=== PATIENT | female | born 2000 | race Caucasian/White ===

== ENCOUNTER 2020-07-28 05:54 | Emergency (ER) | payer SELFPAY ==
[2020-07-28 05:57] VITALS: BP 108/69; PULSE 120; RESP 18; TEMP 36.7; O2SAT 100; BMI 18.3
[2020-07-28] MEDS: azithromycin 250 mg Tablet 1000 MG PO (07:03)
--- NOTE | 2020-07-28 07:03 | ED_ITS ---
HPI - Female Genitourinary General: Chief complaint: Urogenital-Female Stated complaint: skin condition Time Seen by Provider: 07/28/20 06:25 History of Present Illness: HPI Narrative: 20-year-old female presents emergency room complaining of dysuria and dyspareunia. Began overnight. She has her boyfriend with her he states he has an active herpes infection she is concerned she may have herpes. She denies any flank pain no fever sweats or chills. She is extremely anxious. MD elicited complaint: dysuria and possible STD Onset (ago): hour(s) Location of symptoms: external genitalia and vaginal Severity: moderate Quality of pain: burning Vaginal discharge: yellow Vaginal bleeding: none Urinary symptoms: Dysuria Exacerbating factors: urination, intercourse and palpation Associated symptoms: Reports nausea and vaginal discharge; Deny abdominal pain, short of breath, fevers/chills, headache(s), rash, seizures, syncope, vaginal bleeding or weakness Date of Last Menstrual Period: 06/15/20 Review of Systems Const: Denies: fever(s), chills, body aches, change in appetite, fatigue or malaise ENMT: Denies: throat pain, ear or mastoid pain, nasal discharge or nasal congestion Card: Denies: syncope Resp: Denies: dyspnea, productive cough or non-productive cough GI: Reports: nausea; Denies: abdominal pain : Reports: vaginal discharge Skin/Breast: Denies: rash or pruritus Neuro: Denies: headache(s) PFS ED PFSH: Medical History (Updated 07/28/20 @ 07:21 by Nicolas Guevara DO) Bipolar 1 disorder, depressed Family History Grandfather Cancer Social History Smoking and tobacco status: current every day smoker Second hand smoke exposure: No Smoking risk assessment/counseling performed?: No Alcohol intake: never Desire information about alcohol rehabilitation?: No Counseling given: No Desire information about substance/drug rehabilitation?: No Counseling given: No Female Reproductive History: Date of last menstrual period: 06/15/20 Physical Exam Const: COMMON NORMALS: no acute distress GENERAL APPEARANCE: cooperative and comfortable ORIENTATION/CONSCIOUSNESS: Yes awake, Yes oriented to person, Yes oriented to place and Yes oriented to time HENMT: COMMON NORMALS: normocephalic, atraumatic and hearing grossly normal bilaterally HEAD & SCALP: normocephalic and atraumatic Neck/C-Spine: COMMON NORMALS: no JVD Resp: COMMON NORMALS: normal respiratory effort, No retractions, No use of accessory muscles and clear to auscultation bilaterally AUSCULTATION: clear to auscultation bilaterally Cardio: COMMON NORMALS: no JVD, regular rate, regular rhythm and No murmurs present (Cardio) RATE: regular rate RHYTHM: regular rhythm GI: COMMON NORMALS: Soft to palpation and No hepatosplenomegaly present AUSCULTATION: Yes normoactive bowel sounds PALPATION: Yes Soft to palpation, No Tenderness to palpation present (GI), No Guarding due to palpation present (GI) and Yes No hepatosplenomegaly present : SPECULUM EXAM - VAGINA: No vaginal bleeding OB/EXTERNAL & SPECULUM: No vaginal bleeding Back/Pelvis: OTHER: Patient placed in dorsolithotomy position external genitalia there are no open lesions suggestive of herpes. Viral swab was done of the labia minora and the vaginal introitus. GC and chlamydia and wet mount done. Patient had exquisite cervical motion tenderness. Tolerated exam poorly Extremity: COMMON NORMALS: normal to inspection, capillary refill normal, no clubbing, cyanosis or edema, no calf tenderness and no pedal edema Neuro: SENSORIUM/ORIENTATION: Yes oriented to person, Yes oriented to place and Yes oriented to time Skin: COMMON NORMALS: no rashes or lesions noted GENERAL SKIN EXAM: no rashes or lesions noted Course Vital Signs: Vital signs: Vital Signs Temperature 98.1 F 07/28/20 05:57 Pulse Rate 120 H 07/28/20 05:57 Respiratory Rate 18 07/28/20 05:57 Blood Pressure 108/69 07/28/20 05:57 Pulse Oximetry 100 07/28/20 05:57 MDM - Female MDM Narrative: Medical decision making narrative: Empiric treatment for PID. We will also treat for cystitis. Lab Data: Labs: Lab Results 07/28/20 Range/Units 06:19 Urine Color Yellow (Yellow) Urine Appearance Cloudy (CLEAR) Urine pH 7 (5-7) Ur Specific Gravit y 1.015 (1.005-1.030) Urine Protein Trace (Negative) Urine Glucose (UA) Norm (Normal) Urine Ketones Negative (Negative) Urine Blood 3+ H (Negative) Urine Nitrate Negative (Negative) Urine Bilirubin Neg (Negative) Urine Urobilinogen Norm (Negative) mg/dL Ur Leukocyte Sarah ase 2+ H (Negative) Urine RBC 0-4 H (0-2) /hpf Urine WBC 15-25 H (0-5) /hpf Ur Squamous Epith Cells Rare (0-5) /hpf Amorphous Sediment Not Reportable Urine Bacteria 4+ H (NONE) /hpf Discharge Plan Discharge Patient Disposition: Home Clinical Impression: Cystitis, Acute PID (pelvic inflammatory disease) Condition: Stable Prescriptions: New doxycycline hyclate 100 mg capsule 100 mg PO BID 14 Days Qty: 28 RF: 0 Macrobid 100 mg capsule 100 mg PO Q12H 7 Days Qty: 14 RF: 0 No Action lamotrigine [Lamictal] 100 mg tablet 100 mg PO DAILY Qty: 30 RF: 3 Discharge Orders: Discharge ED (Routine); Ordered 07/28/20 Ordered By: Nicolas Guevara Discharge Diet: Usual diet Discharge Activity: Increase activity as tolerated Activity Restrictions/Additional Instructions: Will contact you with remainder results when they are available. Your discharge home was empiric treatment for pelvic inflammatory disease with doxycycline 1 twice a day for 14 days and Macrobid twice daily for 7 days for bladder infection. Coding Level of Care Code ED Analyst Business Analysis for Julio Fwd Exam Comprehensive
[2020-07-28 07:15] LABS: Add Urine Microscopic? YES; Bilirubin Urine Neg (Negative); Blood Urine 3+ (Negative); Glucose Urine UA Norm (Normal); Ketones Urine Negative (Negative); Leukocyte Esterase Urine 2+ (Negative); Nitrate Urine Negative (Negative); Protein Urine Trace (Negative); Specific Gravity, Urine 1.015 (1.005-1.030); Urine Appearance Cloudy (CLEAR); Urine Color Yellow (Yellow); Urobilinogen Urine Norm (Negative); pH Urine 7 (5-7)
[2020-07-28 07:16] LABS: RBC Urine 0-4 /hpf (0-2)
[2020-07-28 07:17] LABS: Add Urine Culture? Yes; Bacteria Urine 4+ /hpf; Squamous Epithelial Cell Urine RARE /hpf (0-5); WBC Urine 15-25 /hpf (0-5)
== END 2020-07-28 07:29 | disposition home or self-care (01) ==
PROVIDERS: Emergency Provider Family Medicine
DX: N30.90 Cystitis, unspecified without hematuria (principal); N73.0 Acute parametritis and pelvic cellulitis; F17.210 Nicotine dependence, cigarettes, uncomplicated
CPT/HCPCS: 12345; 81001; 87077; 87086; 87186; 87491; 87591; 87661; 96372; 99281; 99283; E0352; J0696; Q0144

== ENCOUNTER 2020-08-22 05:10 | Emergency (ER) | payer SELFPAY ==
[2020-08-22 05:18] VITALS: BP 142/100; PULSE 110; RESP 18; TEMP 36.7; O2SAT 100; BMI 17.4
--- NOTE | 2020-08-22 05:22 | XRR_ITS ---
PROCEDURE INFORMATION: Exam: XR Right Ankle Exam date and time: 08/22/2020 5:23 AM Age: 20 years old Clinical indication: Injury or trauma; Other: [place] a pop; Sprain or strain; Ankle; Right TECHNIQUE: Imaging protocol: XR Right ankle. Views: 3 or more views. COMPARISON: No relevant prior studies available. FINDINGS: Bones/joints: Normal. Soft tissues: Normal. XR/XR ankle RT min 3V* [id number] IMPRESSION: No acute findings.
[2020-08-22 05:27] VITALS: BP 142/100; PULSE 101; O2SAT 99
--- NOTE | 2020-08-22 05:36 | ED_ITS ---
HPI - Extremity Problem General: Chief complaint: Extremity Injury, Lower Stated complaint: right ankle injury Time Seen by Provider: 08/22/20 05:21 History of Present Illness: HPI Narrative: 1-year-old female who states that I fell off my perch injuring her right ankle. She points to the medial side of her ankle as being painful. She is having trouble bearing weight. One of the nursing staff asked if she anything for pain, to which she replied a ton of weed . When pain did not improve, she came in for evaluation. No numbness or tingling. Swelling is present. Associated symptoms: Deny fever(s) Review of Systems Const: Denies: fever(s) or chills Resp: Denies: dyspnea or productive cough Neuro: Denies: numbness in extremities PFS ED PFSH: Medical History (Updated 08/22/20 @ 06:11 by Ace Benavidez DO) Bipolar 1 disorder, depressed Family History Grandfather Cancer Social History Smoking and tobacco status: current every day smoker Second hand smoke exposure: No Smoking risk assessment/counseling performed?: No Alcohol intake: never Desire information about alcohol rehabilitation?: No Counseling given: No Desire information about substance/drug rehabilitation?: No Counseling given: No Female Reproductive History: Date of last menstrual period: 06/15/20 Physical Exam Const: COMMON NORMALS: no acute distress GENERAL APPEARANCE: cooperative; not well kempt NUTRITIONAL APPEARANCE: thin Resp: COMMON NORMALS: normal respiratory effort, No use of accessory muscles and clear to auscultation bilaterally AUSCULTATION: clear to auscultation bilaterally Cardio: COMMON NORMALS: regular rate and regular rhythm RATE: regular rate RHYTHM: regular rhythm Extremity: NARRATIVE EXTREMITY EXAM: Exam the right lower extremity reveals significant tenderness to the medial ankle, particularly the medial midfoot. The patient will barely let me touch the foot here. She has minimal lateral tenderness. No deformity. Some mild swelling along the deltoid ligament is noted. No open areas. No other significant tenderness. Pulse and sensation is intact. Psych: APPEARANCE: No well kempt Course Vital Signs: Vital signs: Vital Signs Temperature 98.1 F 08/22/20 05:18 Pulse Rate 100 02/21/21 06:39 Respiratory Rate 18 08/22/20 06:28 Blood Pressure 139/94 08/22/20 06:39 Pulse Oximetry 98 08/22/20 06:39 MDM - Extremity (Nontraumatic) MDM Narrative: Medical decision making narrative: X-ray reveals a fracture of the navicular medially versus an os naviculare. There is minimal soft tissue swelling surrounding, so we will treat as a fracture, and have her follow-up with orthopedics. Splint, nonweightbearing, crutches, and outpatient follow-up. Discharge Plan Discharge Patient Disposition: Home Clinical Impression: Fx navicular, foot-closed Qualifiers: Encounter type: initial encounter Fracture alignment: nondisplaced Laterality: right Qualified Code(s): S92.254A - Nondisplaced fracture of navicular [scapho id] of right foot, initial encounter for closed fracture Condition: Stable Prescriptions: [place] 5-325 mg tablet 1 tab PO Q8H PRN (Reason: pain) Qty: 7 RF: 0 No Action lamotrigine [Lamictal] 100 mg tablet 100 mg PO DAILY Qty: 30 RF: 3 Discharge Orders: Discharge ED (Routine); Ordered 08/22/20 Ordered By: Ace Benavidez Referrals: Giorgio Gonzalez DO [Physician] - 4-7 days Jeanie Gunderson MD [Primary Care Provider] - Patient Instructions: Foot Fracture in Adults (ED), Opioid Safety Activity Restrictions/Additional Instructions: Stay in splint until seen by orthopedics. Do not bear weight, and use crutches. Call the orthopedics department at the number listed above on Sunday morning for an appointment this coming week. Return for concerning symptoms. Coding Level of Care Code ED Fitness Assistant for Joseg Fwd Exam Expanded Problem Focused
[2020-08-22 06:28] VITALS: RESP 18; O2SAT 99
[2020-08-22] MEDS: oxyCODONE-APAP 5-325 mg Tablet 2 TAB PO (06:28)
[2020-08-22 06:39] VITALS: BP 139/94; PULSE 100; O2SAT 98
== END 2020-08-22 06:40 | disposition home or self-care (01) ==
PROVIDERS: Emergency Provider Emergency Medicine; PCP Family Medicine
DX: S92.254A Nondisplaced fracture of navicular [scaphoid] of right foot, initial encounter for closed fracture (principal); F17.210 Nicotine dependence, cigarettes, uncomplicated; W19.XXXA Unspecified fall, initial encounter
CPT/HCPCS: 29515; 73610; 99283; E0114

== ENCOUNTER 2020-12-21 20:23 | Emergency (ER) | payer SELFPAY ==
[2020-12-21] VITALS (10 sets, daily range): BP systolic 79–109; BP diastolic 44–76; PULSE 76–145; RESP 20–35; TEMP 36.4; O2SAT 74–100; BMI 16.8
--- NOTE | 2020-12-21 20:27 | XRR_ITS ---
PROCEDURE INFORMATION: Exam: XR Chest Exam date and time: 12/21/2020 8:27 PM Age: 20 years old Clinical indication: Patient HX: Unknown allergic reaction; Elevated hr. Reports abd pain, rash, erythema, dyspnea; Additional info: SOB TECHNIQUE: Imaging protocol: XR of the chest. Views: 1 view. Total images: 1 COMPARISON: 1. CT abdomen pelvis w con* [id number] 05/06/2018 11:[address] abdomen pelvis w con* [id number] 05/22/2017 2:[address] Abdomen/Pelvis Renal [id number] 05/22/2017 1:47 PM FINDINGS: Lungs: No visible active interstitial or alveolar airspace disease. Hyperinflation and query a history of reactive airway disease/asthma/chronic bronchitis. Pleural spaces: Unremarkable. No pleural effusion. No pneumothorax. Heart/Mediastinum: Cardiac structures and configuration with microcardia. Bones/joints: Unremarkable. XR/XR chest 1V portable [id number] IMPRESSION: Hyperinflation.
--- NOTE | 2020-12-21 20:28 | ECG_ITS ---
[facility] Test Date: 2020-12-21 Pat Name: Zee Bar Department: Room: Gender: Female Mail Handlers Supervisor: : 2000 Requested By: Renaldo Fairchild Order Number: [id number] Rajesh MD: Abdi Patel M.D. Measurements Intervals Vincent Rate: 98 P: 77 IN: 133 QRS: 91 QRSD: 69 T: 71 QT: 382 QTc: 489 Interpretive Statements SINUS RHYTHM POSSIBLE LEFT ATRIAL ENLARGEMENT [-0.1mV P WAVE IN V1/V2] BORDERLINE RIGHT AXIS DEVIATION [QRS AXIS > 90] POSSIBLE RIGHT VENTRICULAR CONDUCTION DELAY [RSR (QR) IN V1/V2] Compared to ECG 05/13/2018 12:16:17 Sinus bradycardia no longer present Indeterminate axis no longer present Myocardial infarct finding no longer present Electronically Signed On 12-22-2020 20:03:04 CDT by Abdi Patel M.D. [id number]
[2020-12-21] MEDS: sodium chloride 0.9% 1,000 ML 999 ML IV (20:35)
[2020-12-21] MEDS: diphenhydrAMINE 50 mg/mL SDV 1mL IVP (20:37)
--- NOTE | 2020-12-21 20:37 | W.ED.ALLEREA ---
HPI - Allergic Reaction General: Chief complaint: Allergic Reaction Stated complaint: Unknown alergic reaction Time Seen by Provider: 12/21/20 20:26 Source: patient Mode of arrival: ambulatory Limitations: no limitations History of Present Illness: HPI narrative: 20-year-old female states she took an amoxicillin 30 minutes before arrival. She states she started having shortness of breath and a rash to her whole body. She does have a extensive urticarial rash and is in severe distress currently. Her pulse ox is in the 70s and heart rates in the 150s and she is hypotensive into the 70s. She states she is taking the Amoxil for a kidney infection. She still does have some abdominal pain. She states she feels like her throat is closing off. Denies having any allergic reactions or anaphylaxis in the past. Denies any worsening improving factors. Associated symptoms: Reports abdominal pain Review of Systems Const: Denies: fever(s), chills, body aches or change in appetite Eyes: Denies: blurry vision or eye discomfort ENMT: Denies: throat pain or dental pain Card: Denies: chest pain Resp: Reports: dyspnea GI: Reports: abdominal pain : Reports: flank pain Musc: Denies: neck pain or back pain Skin/Breast: Reports: rash, pruritus and erythema Neuro: Denies: headache(s) Psych: Denies: depression Alexis/Lymph: Denies: easy bruising All/Imm: Denies: urticaria PFS ED PFSH: Medical History (Updated 12/21/20 @ 22:22 by Renaldo Fairchild MD) Bipolar 1 disorder, depressed Family History Grandfather Cancer Social History Smoking and tobacco status: current every day smoker Second hand smoke exposure: No Smoking risk assessment/counseling performed?: No Alcohol intake: never Desire information about alcohol rehabilitation?: No Counseling given: No Desire information about substance/drug rehabilitation?: No Counseling given: No Female Reproductive History: Date of last menstrual period: 06/15/20 Physical Exam Const: COMMON NORMALS: patient oriented x3 GENERAL APPEARANCE: in distress and ill appearing HENMT: COMMON NORMALS: normocephalic and atraumatic HEAD & SCALP: normocephalic and atraumatic OTHER: No swelling to tongue or throat noted Eye: COMMON NORMALS: Equal, round and reactive pupils present and EOMs intact bilaterally PUPIL: Yes Equal, round and reactive pupils present Neck/C-Spine: COMMON NORMALS: full ROM and supple Chest: COMMONS NORMALS: normal inspection of the chest and normal palpation of entire chest wall Resp: COMMON NORMALS: normal respiratory effort, No retractions, No use of accessory muscles and clear to auscultation bilaterally AUSCULTATION: clear to auscultation bilaterally Cardio: COMMON NORMALS: regular rhythm and No murmurs present (Cardio) RATE: tachycardic RHYTHM: regular rhythm GI: COMMON NORMALS: Normal to inspection, nondistended, normoactive bowel sounds present, Soft to palpation, non-tender and no masses PALPATION: Yes Soft to palpation Extremity: COMMON NORMALS: normal to inspection and full ROM Neuro: COMMON NORMALS: patient oriented x3, moves all extremities and no focal motor deficits Psych: COMMON NORMALS: mental status grossly normal, Normal thought process present and cooperative THOUGHT PROCESS: Normal thought process present Skin: COMMON NORMALS: no wounds NARRATIVE SKIN EXAM: macular papular rash to entire body Course Reevaluation(s): Reevaluation #1: Patient initial arrived she was in anaphylactic shock. She rash to her whole body pulse ox in the 70s heart rate in the 150s and blood pressure in the 60s. Have given her 0.5 IM epi along with a liter bolus this time she is improving. Her blood pressure now is 107/69 heart rate is 93. She had taken an amoxicillin 30 minutes before arrival and likely the cause. Her breathing has improved here as well. Time: 20:42 Vital Signs: Vital signs: Vital Signs Temperature 97.6 F 12/21/20 20:23 Pulse Rate 94 12/21/20 22:26 Respiratory Rate 20 H 12/21/20 22:26 Blood Pressure 102/75 12/21/20 22:26 Pulse Oximetry 100 12/21/20 22:26 MDM - Allergic Reaction MDM Narrative: Medical decision making narrative: Patient presents with an anaphylactic reaction. She is much improved after fluids and epinephrine. I observed her for 3 hours and she is requesting discharge. I feel she is stable for discharge at this time. She does have a urethritis along with trichomonas. Patient given gentamicin and azithromycin here and will prescribe doxycycline and Flagyl for home. Patient also prescribed an EpiPen for home. She is to follow-up with PCP and return if worsening. She understands agrees to plan. Lab Data: Labs: Lab Results 12/21/20 12/21/20 12/21/20 Range/Units 20:26 20:26 20:26 WBC 4.3 (4.0-10.0) 10^3/ uL RBC 5.68 H (4.1-5.3) 10^6/u L Hgb 16.9 H (11.5-15.3) g/dL Hct 51.5 H (37.0-47.0) % MCV 90.7 (81-99) fL MCH 29.8 (28.0-34.0) pg MCHC 32.8 (30.0-36.0) g/dL RDW 11.9 L (12.1-15.1) % Plt Count 265 (130-400) 10^3/c mm MPV 9.3 (7.4-10.4) fL Neut % (Auto) 31.9 % Lymph % (Auto) 59.4 % [place] % (Auto) 8.3 % Eos % (Auto) 0.2 % Baso % (Auto) 0.2 % Neut # (Auto) 1.38 L (1.8-7.7) 10^3/u L Lymph # (Auto) 2.6 (0.8-4.8) 10^3/u L [place] # (Auto) 0.4 (0.2-0.9) 10^3/u L Eos # (Auto) 0.0 (0.0-0.8) 10^3/u L Baso # (Auto) 0.0 (0.0-0.1) 10^3/u L Nucleated RBC % (a uto) 0 % Nucleated RBCs # 0.0 /100WBC Sodium 138 (136-145) mmol/L Potassium 3.4 L (3.5-5.1) mmol/L Chloride 101 (98-107) mmol/L Carbon Dioxide 24 (22-29) mmol/L Anion Gap 16.4 (5-19) BUN 15 (6-20) mg/dL Creatinine 1.1 H (0.5-0.9) mg/dL GFR Calculation 62.1 L (90-130) mL/min Glucose 110 (65-115) mg/dL Calculated Osmolal ity 287 (285-295) mOsm/k g Lactate 3.3 H (0.5-2.2) mmol/L Calcium 8.7 (8.5-10.5) mg/dL Total Bilirubin 0.6 (0.15-1.2) mg/dL AST 28 (0-32) U/L ALT 26 (0-33) U/L Alkaline Phosphata se 62 (35-105) IU/L Total Protein 6.8 (6.6-8.7) g/dL Albumin 4.0 (3.5-5.2) g/dL Globulin 2.8 (1.3-4.6) g/dL HCG, Qual (Negative) Urine Color (Yellow) Urine Appearance (CLEAR) Urine pH (5-7) Ur Specific Gravit y (1.005-1.030) Urine Protein (Negative) Urine Glucose (UA) (Normal) Urine Ketones (Negative) Urine Blood (Negative) Urine Nitrate (Negative) Urine Bilirubin (Negative) Urine Urobilinogen (Negative) mg/dL Ur Leukocyte Sarah ase (Negative) Urine RBC (0-2) /hpf Urine WBC (0-5) /hpf Ur Squamous Epith Cells (0-5) /hpf Amorphous Sediment Urine Bacteria (NONE) /hpf Urine Trichomonas /hpf Salicylates < 0.3 L (3-10) mg/dL Urine Opiates Scre en (Negative) ng/mL Acetaminophen < 5.0 L (10-30) ug/mL Ur Barbiturates Sc reen (Negative) ng/mL Ur Phencyclidine S crn (Negative) ng/mL Ur Amphetamines Sc reen (Negative) ng/mL U Benzodiazepines Scrn (Negative) ng/mL Urine Cocaine Scre en (Negative) ng/mL U Marijuana (THC) Screen (Negative) ng/mL Ethyl Alcohol < 10 (0-10) mg/dL 12/21/20 12/21/20 12/21/20 Range/Units 20:58 20:58 20:58 WBC (4.0-10.0) 10^3/ uL RBC (4.1-5.3) 10^6/u L Hgb (11.5-15.3) g/dL Hct (37.0-47.0) % MCV (81-99) fL MCH (28.0-34.0) pg MCHC (30.0-36.0) g/dL RDW (12.1-15.1) % Plt Count (130-400) 10^3/c mm MPV (7.4-10.4) fL Neut % (Auto) % Lymph % (Auto) % [place] % (Auto) % Eos % (Auto) % Baso % (Auto) % Neut # (Auto) (1.8-7.7) 10^3/u L Lymph # (Auto) (0.8-4.8) 10^3/u L [place] # (Auto) (0.2-0.9) 10^3/u L Eos # (Auto) (0.0-0.8) 10^3/u L Baso # (Auto) (0.0-0.1) 10^3/u L Nucleated RBC % (a uto) % Nucleated RBCs # /100WBC Sodium (136-145) mmol/L Potassium (3.5-5.1) mmol/L Chloride (98-107) mmol/L Carbon Dioxide (22-29) mmol/L Anion Gap (5-19) BUN (6-20) mg/dL Creatinine (0.5-0.9) mg/dL GFR Calculation (90-130) mL/min Glucose (65-115) mg/dL Calculated Osmolal ity (285-295) mOsm/k g Lactate (0.5-2.2) mmol/L Calcium (8.5-10.5) mg/dL Total Bilirubin (0.15-1.2) mg/dL AST (0-32) U/L ALT (0-33) U/L Alkaline Phosphata se (35-105) IU/L Total Protein (6.6-8.7) g/dL Albumin (3.5-5.2) g/dL Globulin (1.3-4.6) g/dL HCG, Qual Negative (Negative) Urine Color [place] (Yellow) Urine Appearance Cloudy (CLEAR) Urine pH 7 (5-7) Ur Specific Gravit y 1.015 (1.005-1.030) Urine Protein 3+ H (Negative) Urine Glucose (UA) Norm (Normal) Urine Ketones Negative (Negative) Urine Blood 3+ H (Negative) Urine Nitrate Positive H (Negative) Urine Bilirubin 1+ H (Negative) Urine Urobilinogen 1 H (Negative) mg/dL Ur Leukocyte Sarah ase Trace H (Negative) Urine RBC 0-4 H (0-2) /hpf Urine WBC 55-80 H (0-5) /hpf Ur Squamous Epith Cells >100 H (0-5) /hpf Amorphous Sediment Not Reportable Urine Bacteria 3+ H (NONE) /hpf Urine Trichomonas 3+ H /hpf Salicylates (3-10) mg/dL Urine Opiates Scre en Negative (Negative) ng/mL Acetaminophen (10-30) ug/mL Ur Barbiturates Sc reen Negative (Negative) ng/mL Ur Phencyclidine S crn Negative (Negative) ng/mL Ur Amphetamines Sc reen Positive H (Negative) ng/mL U Benzodiazepines Scrn Negative (Negative) ng/mL Urine Cocaine Scre en Negative (Negative) ng/mL U Marijuana (THC) Screen Positive H (Negative) ng/mL Ethyl Alcohol (0-10) mg/dL Imaging Data^: CXR: Attestation: I personally reviewed and interpreted this imaging study as follows: My impression: no acute abnormality EKG Data^: EKG 1: Attestation: I personally reviewed and interpreted this EKG as follows: EKG interpretation date: 12/21/20 EKG interpretation time: 21:13 Interpretation: nsr hr [address] or t wave abnormalities qrs 69 qtc 438 Critical Care Time Critical Care Time: Critical Care Time: Yes Total Critical Care Time: 35 Attestation: This case had a high probability of a clinically significant, sudden, or life threatening deterioration of this patient's condition which required my full and direct attention, intervention and personal management. Discharge Plan Discharge Patient Disposition: Home Clinical Impression: Trichomonal cystitis, Urethritis Anaphylaxis Qualifiers: Encounter type: initial encounter Qualified Code(s): T78.2XXA - Anaphylactic shock, unspecified, initial encounter Condition: Stable Prescriptions: New EpiPen 2-Mert 0.3 mg/0.3 mL auto-injector 0.3 mg IM Q15M PRN (Reason: anaphylaxis) Qty: 2 RF: 0 doxycycline hyclate 100 mg tablet 100 mg PO BID 10 Days Qty: 20 RF: 0 Flagyl 500 mg tablet 500 mg PO BID 7 Days Qty: 14 RF: 0 No Action lamotrigine [Lamictal] 100 mg tablet 100 mg PO DAILY Qty: 30 RF: 3 [place] 5-325 mg tablet 1 tab PO Q8H PRN (Reason: pain) Qty: 7 RF: 0 Discharge Orders: Discharge ED (Routine); Ordered 12/21/20 Ordered By: Renaldo Fairchild Referrals: Jeanie Gunderson MD [Primary Care Provider] - 1-3 days Discharge Diet: Advance as tolerated Discharge Activity: Resume usual activity Patient Instructions: Trichomoniasis (ED), Anaphylaxis (ED) Coding Level of Care Code ED Laborer Electroplating for Chg Fwd Exam Comprehensive
[2020-12-21] MEDS: EPINEPHrine 1 mg/mL INJ 0.5 MG IM (20:39)
[2020-12-21 20:58] LABS: Basophils % 0.2 %; Eosinophils % 0.2 %; Hematocrit 51.5 % (37.0-47.0); Hemoglobin 16.9 g/dL (11.5-15.3); Lymphocytes # 2.6 10^3/uL (0.8-4.8); Lymphocytes % 59.4 %; Mean Corpuscular HGB Conc 32.8 g/dL (30.0-36.0); Mean Corpuscular Hemoglobin 29.8 pg (28.0-34.0); Mean Corpuscular Volume 90.7 fL (81-99); Mean Platelet Volume 9.3 fL (7.4-10.4); Monocytes # 0.4 10^3/uL (0.2-0.9); Monocytes % 8.3 %; Neutrophils # 1.38 10^3/uL (1.8-7.7); Neutrophils % 31.9 %; Nucleated Red Blood Cells % 0 %; Platelet Count 265 10^3/cmm (130-400); Red Blood Count 5.68 10^6/uL (4.1-5.3); Red Cell Distribution Width 11.9 % (12.1-15.1); White Blood Count 4.3 10^3/uL (4.0-10.0)
[2020-12-21 21:05] LABS: HCG Qualitative Urine. Negative (Negative)
[2020-12-21 21:20] LABS: Alanine Aminotransferase 26 U/L (0-33); Alkaline Phosphatase 62 IU/L (35-105); Anion Gap 16.4 (5-19); Aspartate Amino Transferase 28 U/L (0-32); Blood Urea Nitrogen 15 mg/dL (6-20); Calcium 8.7 mg/dL (8.5-10.5); Carbon Dioxide 24 mmol/L (22-29); Chloride 101 mmol/L (98-107); Globulin 2.8 g/dL (1.3-4.6); Glomerular Filtration Rate 62.1 mL/min (90-130); Glucose 110 mg/dL (65-115); Osmolality Calculated 287 mOsm/kg (285-295); Potassium 3.4 mmol/L (3.5-5.1); Sodium 138 mmol/L (136-145); Total Bilirubin 0.6 mg/dL (0.15-1.2); Total Protein 6.8 g/dL (6.6-8.7)
[2020-12-21 21:22] LABS: Lactate (Lactic Acid level) 3.3 mmol/L (0.5-2.2)
[2020-12-21 21:23] LABS: Acetaminophen < 5.0 ug/mL (10-30); Alcohol Level < 10 mg/dL (0-10); Salicylate < 0.3 mg/dL (3-10)
[2020-12-21 22:11] LABS: Add Urine Microscopic? YES; Bilirubin Urine 1+ (Negative); Blood Urine 3+ (Negative); Glucose Urine UA Norm (Normal); Ketones Urine Negative (Negative); Leukocyte Esterase Urine Trace (Negative); Nitrate Urine Positive (Negative); Protein Urine 3+ (Negative); RBC Urine 0-4 /hpf (0-2); Specific Gravity, Urine 1.015 (1.005-1.030); Squamous Epithelial Cell Urine >100 /hpf (0-5); Urine Appearance Cloudy (CLEAR); Urine Color Orange (Yellow); Urobilinogen Urine 1 mg/dL (Negative); WBC Urine 55-80 /hpf (0-5); pH Urine 7 (5-7)
[2020-12-21 22:12] LABS: Amphetamines Screen Urine Positive (Negative); Bacteria Urine 3+ /hpf; Barbiturates Screen Urine Negative (Negative); Benzodiazepines Screen Urine Negative (Negative); Cocaine Screen Urine Negative (Negative); Opiate Screen Urine Negative (Negative); PCP Screen Urine Negative (Negative); THC Screen Urine Positive (Negative); Trichomonas Urine 3+ /hpf
[2020-12-21 22:13] LABS: Add Urine Culture? No
[2020-12-21] MEDS: azithromycin 250 mg Tablet 1000 MG PO (23:11)
[2020-12-22 00:11] VITALS: BP 110/72; PULSE 80; RESP 20; O2SAT 99
== END 2020-12-22 00:14 | disposition home or self-care (01) ==
PROVIDERS: Emergency Provider Emergency Medicine; PCP Family Medicine
DX: T78.2XXA Anaphylactic shock, unspecified, initial encounter (principal); A59.03 Trichomonal cystitis and urethritis; F17.210 Nicotine dependence, cigarettes, uncomplicated
CPT/HCPCS: 71045; 80053; 80306; 80307; 81001; 81025; 83605; 85025; 93005; 96361; 96365; 96372; 96375; 99284; J0171; J1200; J1580; J2930; J7030; Q0144

== ENCOUNTER 2022-04-11 01:54 | Emergency (ER) | payer MEDICAID, SELFPAY ==
[2022-04-11 02:05] VITALS: BP 128/85; PULSE 100; RESP 18; TEMP 36.7; O2SAT 99; BMI 18.7
--- NOTE | 2022-04-11 02:08 | W.ED.FEMALGU ---
HPI - Female Genitourinary General: Chief complaint: Urogenital-Female Stated complaint: Kidney Pain Time Seen by Provider: 04/11/22 01:55 History of Present Illness: Ms. Bar is a [age]-year-old lady with significant past medical history of psychiatric illness and renal failure suspected to be secondary to substance abuse who presents to the department due to worsening bilateral kidney pain. She reports essentially chronic pain since a long hospitalization for renal failure however over the past week this has been worse. She reports, secondary to social circumstances, not taking care of her kidneys like she normally does. Intensity symptoms is moderate. Bilateral aching. Denies other associated significant changes in health or urinary symptoms. No other specific changes in health, exacerbating, or alleviating factors identified. Onset (ago): day(s) Severity: moderate Quality of pain: aching Vaginal discharge: none Vaginal bleeding: none Exacerbating factors: none Relieving factors: none Date of Last Menstrual Period: 06/15/20 Review of Systems General: Reports: 10 or more systems reviewed and unremarkable except in HPI and below PFSH ED PFSH: Medical History Bipolar 1 disorder, depressed Family History Grandfather Cancer Social History Smoking and tobacco status: current every day smoker Second hand smoke exposure: No Smoking risk assessment/counseling performed?: No Alcohol intake: never Desire information about alcohol rehabilitation?: No Counseling given: No Desire information about substance/drug rehabilitation?: No Counseling given: No Female Reproductive History: Date of last menstrual period: 06/15/20 Physical Exam Const: COMMON NORMALS: alert GENERAL APPEARANCE: cooperative and well developed HENMT: COMMON NORMALS: normocephalic and atraumatic HEAD & SCALP: normocephalic and atraumatic Eye: COMMON NORMALS: conjunctivae normal CONJUNCTIVA: Yes conjunctivae normal SCLERA: sclerae normal Neck/C-Spine: COMMON NORMALS: supple GENERAL: Yes trachea midline Resp: COMMON NORMALS: normal respiratory effort and clear to auscultation bilaterally EFFORT & INSPECTION: Yes able to speak in complete sentences AUSCULTATION: clear to auscultation bilaterally Cardio: COMMON NORMALS: regular rhythm RATE: tachycardic RHYTHM: regular rhythm GI: COMMON NORMALS: Soft to palpation PALPATION: Yes Soft to palpation, Yes Tenderness to palpation present (GI), No Guarding due to palpation present (GI) and No Rigid due to palpation : COMMON NORMALS: Yes no CVA tenderness BLADDER/KIDNEY EXAM: Yes no CVA tenderness Back/Pelvis: COMMON NORMALS: no CVA tenderness Extremity: GENERAL: Yes normal exam except as noted and No edema Neuro: COMMON NORMALS: moves all extremities SENSORIUM/ORIENTATION: Yes alert and No Orientation impaired Psych: COMMON NORMALS: mental status grossly normal and Normal thought process present THOUGHT PROCESS: Normal thought process present Course Vital Signs: Vital signs: Vital Signs Temperature 98.1 F 04/11/22 02:05 Pulse Rate 107 H 04/11/22 04:50 Respiratory Rate 16 04/11/22 04:50 Blood Pressure 104/72 04/11/22 04:50 Pulse Oximetry 98 04/11/22 04:50 Oxygen Delivery Me thod 04/11/22 02:05 MDM - Female Medical Decision Making 21-year-old lady with complex past medical history presenting with kidney pain. Laboratory studies notable for mild leukopenia, renal function is similar to prior. Likely urinary tract infection. I discussed possible additional evaluation including CT scan as the patient reports flank pain to evaluate for other pathology or evidence of pyelonephritis given tachycardia. Patient declined CT imaging at this time and prefers attempt at outpatient management. Follow-up plan and strict return precautions discussed. Patient satisfactory for discharge and agreeable with plan for outpatient antibiotics. Medical Records I reviewed the patient's medical records. Lab Data I reviewed the patient's lab results. : 04/11/22 02:19 04/11/22 02:19 Laboratory Results WBC 3.8 10^3/uL (4.0-10.0) L 04/11/22 02:19 RBC 4.46 10^6/uL (4.1-5.3) 04/11/22 02:19 Hgb 13.3 g/dL (11.5-15.3) 04/11/22 02:19 Hct 40.3 % (37.0-47.0) 04/11/22 02:19 MCV 90.4 fl (81-99) 04/11/22 02:19 MCH 29.8 pg (28.0-34.0) 04/11/22 02:19 MCHC 33.0 g/dL (30.0-36.0) 04/11/22 02:19 RDW 12.1 % (12.1-15.1) 04/11/22 02:19 Plt Count 178 10^3/cmm (130-400) 04/11/22 02:19 MPV 9.6 fL (7.4-10.4) 04/11/22 02:19 Neut % (Auto) 55.0 % 04/11/22 02:19 Lymph % (Auto) 31.6 % 04/11/22 02:19 [place] % (Auto) 9.7 % 04/11/22 02:19 Eos % (Auto) 3.4 % 04/11/22 02:19 Baso % (Auto) 0.3 % 04/11/22 02:19 Neut # (Auto) 2.09 10^3/uL (1.8-7.7) 04/11/22 02:19 Lymph # (Auto) 1.2 10^3/uL (0.8-4.8) 04/11/22 02:19 [place] # (Auto) 0.4 10^3/uL (0.2-0.9) 04/11/22 02:19 Eos # (Auto) 0.1 10^3/uL (0.0-0.8) 04/11/22 02:19 Baso # (Auto) 0.0 10^3/uL (0.0-0.1) 04/11/22 02:19 Nucleated RBC % (auto) 0 % 04/11/22 02:19 Nucleated RBCs # 0.0 /100WBC 04/11/22 02:19 Sodium 139 mmol/L (136-145) 04/11/22 02:19 Potassium 3.9 mmol/L (3.5-5.1) 04/11/22 02:19 Chloride 99 mmol/L (98-107) 04/11/22 02:19 Carbon Dioxide 29 mmol/L (22-29) 04/11/22 02:19 Anion Gap 14.9 (5-19) 04/11/22 02:19 BUN 16 mg/dL (6-20) 04/11/22 02:19 Creatinine 1.1 mg/dL (0.5-0.9) H 04/11/22 02:19 GFR Calculation 61.6 mL/min (90-130) L 04/11/22 02:19 Glucose 92 mg/dL (65-115) 04/11/22 02:19 Calculated Osmolality 289 mOsm/kg (285-295) 04/11/22 02:19 Lactic Acid 1.2 mmol/L (0.5-2.2) 04/11/22 02:19 Calcium 9.3 mg/dL (8.5-10.5) 04/11/22 02:19 Total Bilirubin 0.3 mg/dL (0.15-1.2) 04/11/22 02:19 AST 17 U/L (0-32) 04/11/22 02:19 ALT 15 U/L (0-33) 04/11/22 02:19 Alkaline Phosphatase 72 U/L (35-105) 04/11/22 02:19 Total Protein 8.3 g/dL (6.6-8.7) 04/11/22 02:19 Albumin 4.3 g/dL (3.5-5.2) 04/11/22 02:19 Globulin 4.0 g/dL (1.3-4.6) 04/11/22 02:19 HCG, Qual Negative (Negative) 04/11/22 03:27 Urine Color Yellow (Yellow) 04/11/22 03:27 Urine Appearance Sl hazy (CLEAR) A 04/11/22 03:27 Urine pH 6.5 (5-7) 04/11/22 03:27 Ur Specific [place] 1.015 (1.005-1.030) 04/11/22 03:27 Urine Protein Neg (Negative) 04/11/22 03:27 Urine Glucose (UA) Norm (Normal) 04/11/22 03:27 Urine Ketones Negative (Negative) 04/11/22 03:27 Urine Blood Neg (Negative) 04/11/22 03:27 Urine Nitrate Positive (Negative) H 04/11/22 03:27 Urine Bilirubin Neg (Negative) 04/11/22 03:27 Urine Urobilinogen Norm mg/dL (Negative) 04/11/22 03:27 Ur Leukocyte Esterase Negative (Negative) 04/11/22 03:27 Urine RBC 0-4 /hpf (0-2) H 04/11/22 03:27 Urine WBC 5-10 /hpf (0-5) H 04/11/22 03:27 Ur Squamous Epith Cells 0-4 /hpf (0-5) H 04/11/22 03:27 Amorphous Sediment Not Reportable 04/11/22 03:27 Urine Bacteria 4+ /hpf (NONE) H 04/11/22 03:27 Discharge Plan Discharge Patient Disposition: Home Clinical Impression: Urinary tract infection Condition: Stable Prescriptions: New ciprofloxacin HCl 500 mg tablet 500 mg PO Q12H Qty: 14 0RF No Action lamotrigine [Lamictal] 100 mg tablet 100 mg PO DAILY Qty: 30 3RF EpiPen 2-Mert 0.3 mg/0.3 mL auto-injector 0.3 mg IM Q15M PRN (Reason: anaphylaxis) Qty: 2 0RF Rx Instructions: do not exceed 3 doses per episode [place] 5-325 mg tablet 1 tab PO Q8H PRN (Reason: pain) Qty: 7 0RF Discharge Orders: Discharge ED (Routine); Ordered 04/11/22 Ordered By: Brennan Trujillo Discharge Diet: Usual diet Discharge Activity: Increase activity as tolerated Patient Instructions: Urinary Tract Infection in Women (ED), Flank Pain (ED) Activity Restrictions/Additional Instructions: Thank you for visiting the emergency department. You were seen and evaluated for back pain. The exact cause of your symptoms is unclear though likely related to urinary tract infection. This will be treated with antibiotics. Please follow-up with your primary care provider and kidney specialist. Return to the emergency department for worsening symptoms, fevers, nausea and vomiting, uncontrolled pain, or anything else that you are concerned about a feel needs emergency department evaluation. Coding Level of Care Code ED [employer] for Julio Velasco
[2022-04-11 02:30] LABS: Basophils % 0.3 %; Eosinophils # 0.1 10^3/uL (0.0-0.8); Eosinophils % 3.4 %; Hematocrit 40.3 % (37.0-47.0); Hemoglobin 13.3 g/dL (11.5-15.3); Lymphocytes # 1.2 10^3/uL (0.8-4.8); Lymphocytes % 31.6 %; Mean Corpuscular Hemoglobin 29.8 pg (28.0-34.0); Mean Corpuscular Volume 90.4 fl (81-99); Mean Platelet Volume 9.6 fL (7.4-10.4); Monocytes # 0.4 10^3/uL (0.2-0.9); Monocytes % 9.7 %; Neutrophils # 2.09 10^3/uL (1.8-7.7); Nucleated Red Blood Cells % 0 %; Platelet Count 178 10^3/cmm (130-400); Red Blood Count 4.46 10^6/uL (4.1-5.3); Red Cell Distribution Width 12.1 % (12.1-15.1); White Blood Count 3.8 10^3/uL (4.0-10.0)
[2022-04-11] MEDS: sodium chloride 0.9% 1,000 ML 999 ML IV (02:33)
[2022-04-11 02:44] LABS: Alanine Aminotransferase 15 U/L (0-33); Albumin Level 4.3 g/dL (3.5-5.2); Alkaline Phosphatase 72 U/L (35-105); Anion Gap 14.9 (5-19); Aspartate Amino Transferase 17 U/L (0-32); Blood Urea Nitrogen 16 mg/dL (6-20); Calcium 9.3 mg/dL (8.5-10.5); Carbon Dioxide 29 mmol/L (22-29); Chloride 99 mmol/L (98-107); Glomerular Filtration Rate 61.6 mL/min (90-130); Glucose 92 mg/dL (65-115); Osmolality Calculated 289 mOsm/kg (285-295); Potassium 3.9 mmol/L (3.5-5.1); Sodium 139 mmol/L (136-145); Total Bilirubin 0.3 mg/dL (0.15-1.2); Total Protein 8.3 g/dL (6.6-8.7)
[2022-04-11 02:45] LABS: Lactic Sepsis W/Reflex 1.2 mmol/L (0.5-2.2)
[2022-04-11 03:39] LABS: HCG Qualitative Urine. Negative (Negative)
[2022-04-11 03:45] LABS: Glucose Urine UA Norm (Normal); Ketones Urine Negative (Negative); Protein Urine Neg (Negative); Specific Gravity, Urine 1.015 (1.005-1.030); Urine Appearance SL Hazy (CLEAR); Urine Color Yellow (Yellow); pH Urine 6.5 (5-7)
[2022-04-11 03:46] LABS: Add Urine Culture? Yes; Add Urine Microscopic? YES; Bacteria Urine 4+ /hpf; Bilirubin Urine Neg (Negative); Blood Urine Neg (Negative); Leukocyte Esterase Urine Negative (Negative); Nitrate Urine Positive (Negative); RBC Urine 0-4 /hpf (0-2); Squamous Epithelial Cell Urine 0-4 /hpf (0-5); Urobilinogen Urine Norm (Negative)
[2022-04-11] MEDS: cefTRIAXone 1,000 MG in sodium chloride 0.9% (plus) 50 ML 100 MG IV (04:26)
[2022-04-11 04:50] VITALS: BP 104/72; PULSE 107; RESP 16; O2SAT 98
== END 2022-04-11 04:52 | disposition home or self-care (01) ==
PROVIDERS: Emergency Provider Emergency Medicine
DX: N39.0 Urinary tract infection, site not specified (principal)
CPT/HCPCS: 36415; 80053; 81001; 81025; 83605; 85025; 87040; 87086; 87186; 96365; 99284; J0696; J7030

== ENCOUNTER 2023-09-26 23:01 | Emergency (ER) | payer BC, MEDICAID, SELFPAY ==
[2023-09-26 23:02] VITALS: BP 117/75; PULSE 101; RESP 16; TEMP 36.3; O2SAT 95; BMI 21.6
[2023-09-26 23:08] VITALS: RESP 16
--- NOTE | 2023-09-26 23:14 | ED_ITS ---
HPI - Back Pain/Injury 2 General: Chief Complaint: Urogenital-Female Stated Complaint: kidney pain Time Seen by Provider: 09/26/23 23:03 Source: patient Mode of arrival: other (police custody) Limitations: no limitations History of Present Illness: Patient is a 23-year-old female in police custody here for complaints of right- sided back pain. Patient tells me she is fearful it is her kidney. Patient states she has a history of renal failure due to infection/abscess. She states she was transferred from [facility] previously although I do not have any records of this. Patient states pain began earlier today. She reports some urinary frequency but no other urinary symptoms. Patient reports chance of . LMP was early August. She states her menstrual cycles are normally regular. She is not having any abdominal pain. No fevers or vomiting. MD elicited complaint: back pain Pertinent past history: prior back pain Onset (ago): hour(s) Timing: constant Severity: moderate Similar Symptoms Previously: Yes Location: right flank and right lower back Radiation: none Exacerbating factors: none and movement Relieving factors: none Associated symptoms: Reports nausea; Deny abdominal pain, chills, change in bowel habits, dysuria, fatigue, fever(s), urinary urgency or vomiting Work related injury: No Review of Systems 2 Const: Denies: fever(s), chills, body aches, fatigue or malaise Card: Denies: chest pain Resp: Denies: dyspnea GI: Reports: nausea; Denies: abdominal pain, vomiting, diarrhea or change in bowel habits : Reports: flank pain and urinary frequency; Denies: difficulty voiding, dysuria, urinary urgency, urinary hesitancy or dribbling Musc: Reports: back pain; Denies: neck pain, extremity pain, extremity swelling, joint pain or joint swelling Skin/Breast: Denies: rash Neuro: Denies: headache(s), numbness in extremities, weakness in extremities, sensory changes or dizziness PFSH ED 2 PFSH: Medical History (Updated 09/27/23 @ 00:20 by EUSEBIA Pro) Bipolar 1 disorder, depressed Family History Grandfather Cancer Social History Smoking and tobacco/nicotine status: current every day tobacco/nicotine user Second hand smoke exposure: No Alcohol intake: never Substance/Drug Use: current Substance/Drug use frequency: daily Female Reproductive History: Date of last menstrual period: 08/09/23 Physical Exam 2 Const: COMMON NORMALS: no acute distress, average body habitus, patient oriented x3, no limitations, healthy appearing, alert and well nourished Resp: COMMON NORMALS: normal respiratory effort and clear to auscultation bilaterally AUSCULTATION: clear to auscultation bilaterally Cardio: COMMON NORMALS: regular rate and regular rhythm RATE: regular rate RHYTHM: regular rhythm GI: COMMON NORMALS: Normal to inspection, nondistended, normoactive bowel sounds present, Soft to palpation, non-tender, No hepatosplenomegaly present and no masses PALPATION: Yes Soft to palpation and Yes No hepatosplenomegaly present : BLADDER/KIDNEY EXAM: Yes CVA tenderness on the right OTHER: TTP R CVA and below throughout R lower back Back/Pelvis: COMMON NORMALS: thoracic and lumbar spine normal to inspection, no thoracic nor lumbar tenderness, thoraco-lumbar ROM normal and straight leg raise negative bilaterally GENERAL BACK: Yes CVA tenderness LUMBAR SPINE/LOWER BACK: No lumbar spinal tenderness, Yes paraspinal muscle tenderness, Yes paraspinal muscle spasm, No mass present and Yes straight leg raise negative bilaterally PELVIS: Yes buttocks normal and No sciatic notch tenderness S ACROILIAC JOINTS: Yes SI joints normal SACRUM: no tenderness COCCYX: no tenderness Extremity: GENERAL: Yes normal exam except as noted Neuro: NEREYDA COMA SCALE: document GCS findings [place] coma scale eye opening: Spontaneous [place] coma scale verbal response: Orientated [place] coma scale motor response: Obey commands Nereyda coma scale total score: 15 COMMON NORMALS: patient oriented x3, moves all extremities, no focal motor deficits, no sensory deficits noted and gait normal SENSORIUM/ORIENTATION: Yes alert Skin: COMMON NORMALS: no rashes or lesions noted GENERAL SKIN EXAM: no rashes or lesions noted Course 2 Vital Signs: Vital signs: Vital Signs Temperature 97.3 F L 09/26/23 23:02 Pulse Rate 95 09/27/23 00:29 Respiratory Rate 14 09/27/23 00:29 Blood Pressure 137/87 09/27/23 00:29 Pulse Oximetry 100 09/27/23 00:29 Oxygen Delivery Me thod Room Air 09/26/23 23:08 MDM - Back Pain/Injury Medical Decision Making Patient appears in no acute distress. She is not tachycardic or febrile. On blood work she has a completely normal white count. Her creatinine is normal. UA is contaminated but not overly suspicious for infection. She does have 1+ leuks and 10-15 WBCs. Nitrate is negative. They did see trichomonas. Will go ahead and cover for pyelonephritis with Cipro. She will be placed on Flagyl for the Trichomonas. Do not feel she needs emergent imaging at this time with her normal vitals and normal white count. Strict return ED precautions given. Differential Diagnosis Likely strain of lumbar region and pyelonephritis Medical Records I reviewed the patient's medical records. Labs I reviewed the patient's lab results. 09/26/23 23:25 09/26/23 23: Laboratory Results WBC 7.58 10^3/uL (3.29-11.43) 09/26/23 23: RBC 4.17 10^6/uL (3.85-5.65) 09/26/23 23: Hgb 12.90 g/dL (11.27-16.99) 09/26/23 23: Hct 38.7 % (36-47) 09/26/23: MCV 92.8 fl (85-98) 09/26/23 23: MCH 30.9 pg (27-33) 09/26/23 23: MCHC 33.3 g/dL (30-55) 09/26/23 23: RDW 11.9 % (12.1-15.1) L 09/26/23: Plt Count 241 10^3/cmm (157-399) 09/26/23 23: MPV 9.4 fL (7.4-10.4) 09/26/23: Neut % (Auto) 56.1 % 09/26/23: Lymph % (Auto) 32.5 % 09/26/23 23: [place] % (Auto) 6.6 % 09/26/23: Eos % (Auto) 4.1 % 09/26/23: Baso % (Auto) 0.4 % 09/26/23: Neut # (Auto) 4.26 10^3/uL (1.8-7.7) 09/26/23 23:25 Lymph # (Auto) 2.5 10^3/uL (0.8-4.8) 09/26/23 23:25 [place] # (Auto) 0.5 10^3/uL (0.2-0.9) 09/26/23 23:25 Eos # (Auto) 0.3 10^3/uL (0.0-0.8) 09/26/23 23:25 Baso # (Auto) 0.0 10^3/uL (0.0-0.1) 09/26/23 23:25 Nucleated RBC % (auto) 0 % 09/26/23 23:25 Nucleated RBCs # 0.0 /100WBC 09/26/23 23:25 Sodium 137 mmol/L (136-145) 09/26/23 23:25 Potassium 4.6 mmol/L (3.5-5.1) 09/26/23 23:25 Chloride 102 mmol/L (98-107) 09/26/23 23:25 Carbon Dioxide 26 mmol/L (22-29) 09/26/23 23:25 Anion Gap 13.6 (5-19) 09/26/23 23:25 BUN 25 mg/dL (6-20) H 09/26/23 23:25 Creatinine 1.0 mg/dL (0.5-0.9) H 09/26/23 23:25 GFR Calculation 67.6 mL/min (90-130) L 09/26/23 23:25 Glucose 93 mg/dL (65-115) 09/26/23 23:25 Calculated Osmolality 288 mOsm/kg (285-295) 09/26/23 23:25 Calcium 9.3 mg/dL (8.5-10.5) 09/26/23 23:25 Total Bilirubin 0.2 mg/dL (0.15-1.2) 09/26/23 23:25 AST 22 U/L (0-32) 09/26/23 23:25 ALT 26 U/L (0-33) 09/26/23 23:25 Alkaline Phosphatase 63 U/L (35-105) 09/26/23 23:25 Total Protein 7.8 g/dL (6.6-8.7) 09/26/23 23:25 Albumin 4.5 g/dL (3.5-5.2) 09/26/23 23:25 Globulin 3.3 g/dL (1.3-4.6) 09/26/23 23:25 HCG, Qual Negative (Negative) 09/26/23 23:22 Urine Color Yellow (Yellow) 09/26/23 23:22 Urine Appearance Hazy (CLEAR) A 09/26/23 23:22 Urine pH 6 (5-7) 09/26/23 23:22 Ur Specific [place] 1.015 (1.005-1.030) 09/26/23 23:22 Urine Protein Neg (Negative) 09/26/23 23:22 Urine Glucose (UA) Norm (Normal) 09/26/23 23:22 Urine Ketones Negative (Negative) 09/26/23 23:22 Urine Blood Trace (Negative) H 09/26/23 23:22 Urine Nitrate Negative (Negative) 09/26/23 23:22 Urine Bilirubin Neg (Negative) 09/26/23 23:22 Urine Urobilinogen Neg mg/dL (Negative) 09/26/23 23:22 Ur Leukocyte Esterase 1+ (Negative) H 09/26/23 23:22 Urine RBC 5-10 /hpf (0-2) H 09/26/23 23:22 Urine WBC 10-15 /hpf (0-5) H 09/26/23 23:22 Ur Squamous Epith Cells 10-15 /hpf (0-5) H 09/26/23 23:22 Amorphous Sediment Not Reportable 09/26/23 23:22 Urine Bacteria 1+ /hpf (NONE) H 09/26/23 23:22 Urine Trichomonas 2+ /hpf H 09/26/23 23:22 No radiology studies performed this visit Discharge Plan Discharge Patient Disposition: Home Clinical Impression: Pyelonephritis, Trichomonas infection Condition: Stable Prescriptions: New metronidazole 500 mg tablet 500 mg PO BID 7 Days Qty: 14 0RF Continued ciprofloxacin HCl 500 mg tablet 500 mg PO Q12H Qty: 14 0RF No Action lamotrigine [Lamictal] 100 mg tablet 100 mg PO DAILY Qty: 30 3RF EpiPen 2-Mert 0.3 mg/0.3 mL auto-injector 0.3 mg IM Q15M PRN (Reason: anaphylaxis) Qty: 2 0RF Rx Instructions: do not exceed 3 doses per episode [place] 5-325 mg tablet 1 tab PO Q8H PRN (Reason: pain) Qty: 7 0RF Discharge Orders: Discharge ED (Routine); Ordered 09/27/23 Ordered By: Naomi Duggan Activity Restrictions/Additional Instructions: He is feeling antibiotics and start them immediately. ED return the emergency department for worsening flank, back pain, repetitive episodes of vomiting, inability to hold down your antibiotics, fevers, severe abdominal pain, or any other concerns you may have. Coding Level of Care Code ED [employer] for Julio Velasco
[2023-09-26 23:31] LABS: Basophils % 0.4 %; Eosinophils # 0.3 10^3/uL (0.0-0.8); Eosinophils % 4.1 %; Hematocrit 38.7 % (36-47); Lymphocytes # 2.5 10^3/uL (0.8-4.8); Lymphocytes % 32.5 %; Mean Corpuscular HGB Conc 33.3 g/dL (30-55); Mean Corpuscular Hemoglobin 30.9 pg (27-33); Mean Corpuscular Volume 92.8 fl (85-98); Mean Platelet Volume 9.4 fL (7.4-10.4); Monocytes # 0.5 10^3/uL (0.2-0.9); Monocytes % 6.6 %; Neutrophils # 4.26 10^3/uL (1.8-7.7); Neutrophils % 56.1 %; Nucleated Red Blood Cells % 0 %; Platelet Count 241 10^3/cmm (157-399); Red Blood Count 4.17 10^6/uL (3.85-5.65); Red Cell Distribution Width 11.9 % (12.1-15.1); White Blood Count 7.58 10^3/uL (3.29-11.43)
[2023-09-26 23:34] LABS: HCG Qualitative Urine. Negative (Negative)
[2023-09-26 23:49] LABS: Alanine Aminotransferase 26 U/L (0-33); Albumin Level 4.5 g/dL (3.5-5.2); Alkaline Phosphatase 63 U/L (35-105); Blood Urea Nitrogen 25 mg/dL (6-20); Calcium 9.3 mg/dL (8.5-10.5); Carbon Dioxide 26 mmol/L (22-29); Chloride 102 mmol/L (98-107); Creatinine Clr Calc Pharmacy 78.4536; Globulin 3.3 g/dL (1.3-4.6); Glomerular Filtration Rate 67.6 mL/min (90-130); Glucose 93 mg/dL (65-115); Osmolality Calculated 288 mOsm/kg (285-295); Sodium 137 mmol/L (136-145); Total Bilirubin 0.2 mg/dL (0.15-1.2); Total Protein 7.8 g/dL (6.6-8.7)
[2023-09-26 23:51] LABS: Protein Urine Neg (Negative); Specific Gravity, Urine 1.015 (1.005-1.030); Urine Appearance Hazy (CLEAR); Urine Color Yellow (Yellow); pH Urine 6 (5-7)
[2023-09-26 23:52] LABS: Add Urine Microscopic? YES; Bacteria Urine 1+ /hpf; Bilirubin Urine Neg (Negative); Blood Urine Trace (Negative); Glucose Urine UA Norm (Normal); Ketones Urine Negative (Negative); Leukocyte Esterase Urine 1+ (Negative); Nitrate Urine Negative (Negative); Urobilinogen Urine Neg (Negative)
[2023-09-26 23:53] LABS: Add Urine Culture? No; Trichomonas Urine 2+ /hpf
[2023-09-27 00:03] LABS: Anion Gap 13.6 (5-19); Aspartate Amino Transferase 22 U/L (0-32); Potassium 4.6 mmol/L (3.5-5.1)
[2023-09-27] MEDS: ciprofloxacin 500 mg Tablet PO (00:22)
[2023-09-27 00:29] VITALS: BP 137/87; PULSE 95; RESP 14; O2SAT 100
== END 2023-09-27 00:33 | disposition home or self-care (01) ==
PROVIDERS: Emergency Provider Physician Assistant
DX: N12 Tubulo-interstitial nephritis, not specified as acute or chronic (principal); A59.9 Trichomoniasis, unspecified; Z72.0 Tobacco use
CPT/HCPCS: 80053; 81001; 81025; 85025; 87086; 99283

== ENCOUNTER → 2024-01-23 13:09 | Outpatient (BNVA) | payer BC, MEDICAID, SELFPAY | PROVIDERS: Visit Provider Nurse Practitioner Family | DX: N23 Unspecified renal colic (principal); F31.9 Bipolar disorder, unspecified | CPT/HCPCS: 80053; 80061; 84443; 85025 ==

== ENCOUNTER 2024-02-14 13:19 | Outpatient (CLI) | payer BC, MEDICAID, SELFPAY ==
--- NOTE | 2024-02-14 13:30 | US_ITS ---
WS: [id number] RENAL ULTRASOUND HISTORY: kidney pain COMPARISON: CT 05/06/2018 TECHNIQUE: 2-D and color Doppler imaging of the kidney submitted. Right kidney: 3.6 cm x 2.4 cm x 1.6 cm. Cortex: 0.4 cm Marked atrophy RIGHT kidney. There is no obstruction. There is marked asymmetric cortical thinning, m ost significant in the upper pole. Mild progression of atrophy since the CT of 05/06/2018. Length of t he kidney at that time was 5.8 cm. Left kidney: 11.4 cm x 5.3 cm x 5.3 cm. Cortex: 1.0 cm Normal echogenicity with no hydronephrosis or mass. Aorta: Normal. Urinary Bladder: Minimally distended. Mildly prominent bladder wall is probably due to partial disten tion. US/US renal BI* [id number] IMPRESSION: 1. Normal LEFT kidney. No hydronephrosis. 2. Severe atrophy RIGHT kidney. Progression of renal atrophy since 05/06/2018.
== END 2024-02-14 13:20 | disposition home or self-care (01) ==
LOC: RAD 13:21
PROVIDERS: Visit Provider Nurse Practitioner Family
DX: N23 Unspecified renal colic (principal); N26.9 Renal sclerosis, unspecified
CPT/HCPCS: 76770

== ENCOUNTER 2024-04-23 14:21 | Inpatient (IN) | payer BC, SELFPAY ==
[2024-04-23] VITALS (9 sets, daily range): BP systolic 91–135; BP diastolic 51–82; PULSE 82–114; RESP 16–35; TEMP 37–37.9; O2SAT 95–100; BMI 19.7
--- NOTE | 2024-04-23 15:20 | CTR_ITS ---
PROCEDURE INFORMATION: Exam: CT Abdomen And Pelvis Without Contrast Exam date and time: 04/23/2024 4:35 PM Age: 23 years old Clinical indication: Other: Back pain; Additional info: Flank pain TECHNIQUE: Imaging protocol: Computed tomography of the abdomen and pelvis without contrast. Axial, coronal and sagittal reformatted images were created and reviewed. Radiation optimization: All CT scans at this facility use at least one of these dose optimization techniques: automated exposure control; mA and/or kV adjustment per patient size (includes targeted exams where dose is matched to clinical indication); or iterative reconstruction. COMPARISON: CT abdomen pelvis w con* [id number] 05/06/2018 11:12 AM RADIATION DOSE METRICS: Total DLP (mGy-cm): 356.03 FINDINGS: Liver: Unremarkable. Gallbladder and biliary ducts: No radiodense gallstones. No biliary ductal dilatation. Pancreas: Unremarkable. Spleen: Unremarkable. Adrenal glands: Normal. No mass. Kidneys and ureters: Right renal atrophy. Mildly enlarged, mildly edematous left kidney with associated perinephric stranding and edema. No radiodense calculi. No hydronephrosis. Stomach and bowel: No bowel wall thickening. No obstruction. No pneumatosis. Appendix: Status post appendectomy. Intraperitoneal space: Trace nonspecific free pelvic fluid, likely physiologic. No organized fluid collection. No free air. Vasculature: Unremarkable. No aneurysm. Lymph nodes: No pathologically enlarged lymph nodes. Urinary bladder: Unremarkable as visualized. Reproductive: 4.7 x 4.2 cm right adnexal cystic lesion, likely a follicular cyst. Bones/joints: No acute osseous abnormality. Soft tissues: Unremarkable. CT/CT kidney stone [id number] IMPRESSION: 1. Mildly enlarged, mildly edematous left kidney with associated perinephric stranding and edema. Acute pyelonephritis could produce this appearance. Correlate with urinalysis. 2. 4.7 x 4.2 cm right adnexal cystic lesion, likely a follicular cyst. If clinically indicated, pelvic ultrasound may be obtained for further evaluation. 3. Additional findings, as above.
--- NOTE | 2024-04-23 15:22 | W.ED.BACK ---
HPI - Back Pain/Injury General: Chief Complaint: Back Pain/Injury Stated Complaint: abdominal/neck pain - sent from [place] Time Seen by Provider: 04/23/24 15:11 History of Present Illness: 23-year-old female who presents emergency room with left flank pain and fever. This been ongoing for about 5 days. She complains of severe left flank pain. Is difficult to examine patient. She denies any hematuria she does state it is possible that she is . No history of kidney stones she has some history of some renal atrophy. There is a ultrasound done previously on the chart which was reviewed. She is not currently on any antibiotics.. Associated symptoms: Deny abdominal pain, chills, dysuria, fever(s) or urinary urgency Related Data Home Medications Medication Instructions Recorded Confirmed No Known Home Medications 04/23/24 04/23/24 Allergies Allergy/AdvReac Type Severity Reaction Status Date / Time amoxicillin Allergy ALGY-Anaphy Verified 03/14/24 14:05 laxis morphine Allergy Unknown Verified 03/14/24 14:05 [facility] [[facility] AdvReac Severe ADR-Agitate Verified 03/14/24 14:05 d Review of Systems Const: Denies: fever(s) or chills Card: Denies: chest pain Resp: Denies: dyspnea GI: Denies: abdominal pain : Reports: flank pain; Denies: dysuria, urinary frequency or urinary urgency Musc: Denies: neck pain or back pain Skin/Breast: Denies: rash PFSH ED PFSH: Medical History Bipolar 1 disorder, depressed Family History Grandfather Cancer Social History Smoking and tobacco/nicotine status: never used tobacco/nicotine Second hand smoke exposure: No Alcohol intake: never Substance/Drug Use: current Substance/Drug use frequency: daily Physical Exam Const: GENERAL APPEARANCE: cooperative ORIENTATION/CONSCIOUSNESS: Yes awake, Yes oriented to person, Yes oriented to place and Yes oriented to time HENMT: COMMON NORMALS: normocephalic, atraumatic and hearing grossly normal bilaterally HEAD & SCALP: normocephalic and atraumatic Resp: COMMON NORMALS: normal respiratory effort, No retractions, No use of accessory muscles and clear to auscultation bilaterally AUSCULTATION: clear to auscultation bilaterally Cardio: COMMON NORMALS: regular rate, regular rhythm and No murmurs present (Cardio) RATE: regular rate RHYTHM: regular rhythm GI: COMMON NORMALS: Soft to palpation and No hepatosplenomegaly present AUSCULTATION: Yes normoactive bowel sounds PALPATION: Yes Soft to palpation, No Tenderness to palpation present (GI), No Guarding due to palpation present (GI) and Yes No hepatosplenomegaly present : BLADDER/KIDNEY EXAM: Yes CVA tenderness on the left Back/Pelvis: GENERAL BACK: Yes CVA tenderness Extremity: COMMON NORMALS: normal to inspection, capillary refill normal, no clubbing, cyanosis or edema, no calf tenderness and no pedal edema Neuro: SENSORIUM/ORIENTATION: Yes oriented to person, Yes oriented to place and Yes oriented to time Skin: COMMON NORMALS: no rashes or lesions noted GENERAL SKIN EXAM: no rashes or lesions noted Course Vital Signs: Vital signs: Vital Signs Temperature 100 F H 04/23/24 14:54 Pulse Rate 98 04/23/24 17:12 Respiratory Rate 16 04/23/24 14:54 Blood Pressure 135/82 04/23/24 17:12 Pulse Oximetry 100 04/23/24 17:12 Oxygen Delivery Me thod Room Air 04/23/24 14:54 MDM - Back Pain/Injury Medical Decision Making Acute left-sided pyelonephritis. Patient was mildly hypotensive when she arrived improved with fluids. White count normal lactate not elevated. Urine to be cultured started on ceftriaxone discussed with hospitalist orders written Labs 04/23/24 15:20 04/23/24 15:20 Radiology Impressions Abdomen/Pelvis CT 04/23/24 15:20 IMPRESSION: 1. Mildly enlarged, mildly edematous left kidney with associated perinephric stranding and edema. Acute pyelonephritis could produce this appearance. Correlate with urinalysis. 2. 4.7 x 4.2 cm right adnexal cystic lesion, likely a follicular cyst. If clinically indicated, pelvic ultrasound may be obtained for further evaluation. 3. Additional findings, as above. Laboratory Results WBC 7.62 10^3/uL (3.29-11.43) 04/23/24 15:20 RBC 3.73 10^6/uL (3.85-5.65) L 04/23/24 15:20 Hgb 11.20 g/dL (11.27-16.99) L 04/23/24 15:20 Hct 33.8 % (36-47) L 04/23/24 15:20 MCV 90.6 fl (85-98) 04/23/24 15:20 MCH 30.0 pg (27-33) 04/23/24 15:20 MCHC 33.1 g/dL (30-55) 04/23/24 15:20 RDW 12.4 % (12.1-15.1) 04/23/24 15:20 Plt Count 145 10^3/cmm (157-399) L 04/23/24 15:20 MPV 10.0 fL (7.4-10.4) 04/23/24 15:20 Neut % (Auto) 86.8 % 04/23/24 15:20 Lymph % (Auto) 5.6 % 04/23/24 15:20 [place] % (Auto) 6.4 % 04/23/24 15:20 Eos % (Auto) 0.1 % 04/23/24 15:20 Baso % (Auto) 0.3 % 04/23/24 15:20 Neut # (Auto) 6.61 10^3/uL (1.8-7.7) 04/23/24 15:20 Lymph # (Auto) 0.4 10^3/uL (0.8-4.8) L 04/23/24 15:20 [place] # (Auto) 0.5 10^3/uL (0.2-0.9) 04/23/24 15:20 Eos # (Auto) 0.0 10^3/uL (0.0-0.8) 04/23/24 15:20 Baso # (Auto) 0.0 10^3/uL (0.0-0.1) 04/23/24 15:20 Nucleated RBC % (auto) 0 % 04/23/24 15:20 Nucleated RBCs # 0.0 /100WBC 04/23/24 15:20 Sodium 129 mmol/L (136-145) L 04/23/24 15:20 Potassium 4.2 mmol/L (3.5-5.1) 04/23/24 15:20 Chloride 95 mmol/L (98-107) L 04/23/24 15:20 Carbon Dioxide 24 mmol/L (22-29) 04/23/24 15:20 Anion Gap 14.2 (5-19) 04/23/24 15:20 BUN 13 mg/dL (6-20) 04/23/24 15:20 Creatinine 1.2 mg/dL (0.5-0.9) H 04/23/24 15:20 GFR Calculation 54.7 mL/min (90-130) L 04/23/24 15:20 Glucose 165 mg/dL (65-115) H 04/23/24 15:20 Calculated Osmolality 272 mOsm/kg (285-295) L 04/23/24 15:20 Lactic Acid 2.0 mmol/L (0.5-2.2) 04/23/24 15:20 Calcium 8.3 mg/dL (8.5-10.5) L 04/23/24 15:20 Total Bilirubin 0.6 mg/dL (0.15-1.2) 04/23/24 15:20 AST 23 U/L (0-32) 04/23/24 15:20 ALT 20 U/L (0-33) 04/23/24 15:20 Alkaline Phosphatase 90 U/L (35-105) 04/23/24 15:20 Total Protein 6.7 g/dL (6.6-8.7) 04/23/24 15:20 Albumin 3.5 g/dL (3.5-5.2) 04/23/24 15:20 Globulin 3.2 g/dL (1.3-4.6) 04/23/24 15:20 HCG, Qual Negative (Negative) 04/23/24 15:20 Urine Color Yellow (Yellow) 04/23/24 15:45 Urine Appearance Clear (CLEAR) 04/23/24 15:45 Urine pH 6.0 (5-7) 04/23/24 15:45 Ur Specific [place] 1.006 (1.005-1.030) 04/23/24 15:45 Urine Protein Trace (Negative) A 04/23/24 15:45 Urine Glucose (UA) Negative (Normal) 04/23/24 15:45 Urine Ketones Negative (Negative) 04/23/24 15:45 Urine Blood 1+ (Negative) A 04/23/24 15:45 Urine Nitrate Negative (Negative) 04/23/24 15:45 Urine Bilirubin Negative (Negative) 04/23/24 15:45 Urine Urobilinogen 1.0 mg/dL (Negative) 04/23/24 15:45 Ur Leukocyte Esterase 2+ (Negative) A 04/23/24 15:45 Urine RBC 3-5 /hpf (0-2) 04/23/24 15:45 Urine WBC 21-50 /hpf (0-5) H 04/23/24 15:45 Ur Squamous Epith Cells 6-10 /hpf (0-5) 04/23/24 15:45 Amorphous Sediment Not Reportable 04/23/24 15:45 Urine Bacteria 4+ /hpf (NONE) H 04/23/24 15:45 Hyaline Casts 0.40 /lpf 04/23/24 15:45 All radiology interpretation(s) finalized by discharge Discharge Plan Discharge Condition: Stable Prescriptions: No Action No Known Home Medications Referrals: Antoinette Hunt FNP [Primary Care Provider] - Coding Level of Care Code ED [employer] for Joseg Rod
[2024-04-23] MEDS: sodium chloride 0.9% 1,000 ML 999 ML IV (15:37)
[2024-04-23 15:44] LABS: Basophils % 0.3 %; Eosinophils % 0.1 %; Hematocrit 33.8 % (36-47); Lymphocytes # 0.4 10^3/uL (0.8-4.8); Lymphocytes % 5.6 %; Mean Corpuscular HGB Conc 33.1 g/dL (30-55); Mean Corpuscular Volume 90.6 fl (85-98); Monocytes # 0.5 10^3/uL (0.2-0.9); Monocytes % 6.4 %; Neutrophils # 6.61 10^3/uL (1.8-7.7); Neutrophils % 86.8 %; Nucleated Red Blood Cells % 0 %; Platelet Count 145 10^3/cmm (157-399); Red Blood Count 3.73 10^6/uL (3.85-5.65); Red Cell Distribution Width 12.4 % (12.1-15.1); White Blood Count 7.62 10^3/uL (3.29-11.43)
--- NOTE | 2024-04-23 15:47 | PC.PHAR ---
removed sertraline and olanzapine off patients med list she denies taking these
[2024-04-23 15:56] LABS: Bilirubin Urine Negative (Negative); Blood Urine 1+ (Negative); Glucose Urine UA Negative (Normal); Ketones Urine Negative (Negative); Leukocyte Esterase Urine 2+ (Negative); Nitrate Urine Negative (Negative); Protein Urine Trace (Negative); Specific Gravity, Urine 1.006 (1.005-1.030); Urine Appearance Clear (CLEAR); Urine Color Yellow (Yellow)
[2024-04-23 16:01] LABS: Add Urine Microscopic? YES; Bacteria Urine 4+ /hpf; WBC Urine 21-50 /hpf (0-5)
[2024-04-23 16:06] LABS: HCG, Serum Qual Negative (Negative)
[2024-04-23 16:09] LABS: Alanine Aminotransferase 20 U/L (0-33); Albumin Level 3.5 g/dL (3.5-5.2); Alkaline Phosphatase 90 U/L (35-105); Anion Gap 14.2 (5-19); Aspartate Amino Transferase 23 U/L (0-32); Blood Urea Nitrogen 13 mg/dL (6-20); Calcium 8.3 mg/dL (8.5-10.5); Carbon Dioxide 24 mmol/L (22-29); Chloride 95 mmol/L (98-107); Creatinine Clr Calc Pharmacy 67.6797; Globulin 3.2 g/dL (1.3-4.6); Glomerular Filtration Rate 54.7 mL/min (90-130); Glucose 165 mg/dL (65-115); Osmolality Calculated 272 mOsm/kg (285-295); Potassium 4.2 mmol/L (3.5-5.1); Sodium 129 mmol/L (136-145); Total Bilirubin 0.6 mg/dL (0.15-1.2); Total Protein 6.7 g/dL (6.6-8.7)
--- NOTE | 2024-04-23 17:51 | P.HP_ITS ---
Providers/Chief Complaint 2 Primary Care Provider: DELICIA Blandon Chief Complaint: abdominal/neck pain - sent from [place] History of Present Illness Zee Bar is a 23 year old female With past medical history of bipolar disorder for which he takes sertraline presented to the hospital today for complaint of flank pain and fever. She has had this for the last 5 days and has been having severe left flank pain. She does state it is possible she may be . No history of kidney stones as far she is aware. Currently not taking any antibiotics. Denies chills dysuria urinary urgency. Patient states she she has an pyelonephritis before and at that time she was septic and required hospital admission. She was there for 10 days. She was at [facility] about 7 years ago. Has been given an appointment to her urologist who they are seeing in August but has admitted the appointment yet. She knew she was eventually getting a kidney infection however waited to come to the hospital. ED course: 91/61, respiratory 16, pulse 109, temperature 100, saturating 99% on room air. CT abdomen pelvis was obtained which showed mildly enlarged mildly edematous left kidney with associated perinephric stranding and edema. Acute pyelonephritis could produce this appearance. Correlate with urinalysis. 4.7 x 4.2 cm right adnexal cystic lesion likely follicular cyst present. If clinically indicated pelvic ultrasound may be obtained for further evaluation. test negative. Blood cultures were obtained and patient was given ceftriaxone 2 g IV push once. She was also given 1 L normal saline bolus. Medications/Allergies Home Medications Medication Instructions Recorded Confirmed Last Taken Type No Known Home Medications 04/23/24 04/23/24 Unknown History Allergies Allergy/AdvReac Type Severity Reaction Status Date / Time amoxicillin Allergy ALGY-Anaphy Verified 03/14/24 14:05 laxis morphine Allergy Unknown Verified 03/14/24 14:05 aripiprazole [From Ab[facility]] AdvReac Severe ADR-Agitate Verified 03/14/24 14:05 d PFSH Acute 2 PFSH: Medical History Bipolar 1 disorder, depressed Family History Grandfather Cancer Social History Smoking and tobacco/nicotine status: never used tobacco/nicotine Second hand smoke exposure: No Alcohol intake: never Substance/Drug Use: current Substance/Drug use frequency: daily Vitals/I&O/Wt Last Vital Signs Temp 100 F H 04/23/24 14:54 Pulse 98 04/23/24 17:12 Resp 16 04/23/24 14:54 BP 135/82 04/23/24 17:12 Pulse Ox 100 04/23/24 17:12 O2 Del Method Room Air 04/23/24 14:54 Weight last 48 hrs Weight 57.153 kg Physical Exam 2 Narrative: General: Alert oriented x3, patient seen sitting up in bed appearing comfortable HEENT: Normocephalic, atraumatic, EOMI, breathing room air Cardio: Regular rate rhythm, normal S1-S2, Respiratory: Good bilateral air entry, no wheezes no rhonchi appreciated GI: Abdomen soft, nontender, nondistended, bowel sounds + Mildly tender to palpation left side of back. Extremities: Pulses 2+, no edema, no cyanosis Data 04/24/24 04:44 04/24/24 04:44 Micro: Microbiology 04/23/24 15:30 Blood Culture - Preliminary Blood SPECIMEN COLLECTED 04/23/24 15:20 Blood Culture - Preliminary Blood SPECIMEN COLLECTED A&P Assessment and plan (1) Bipolar 1 disorder, depressed: (2) Kidney pain: (3) Renal atrophy, right: (4) Pyelonephritis: Plan #Acute pyelonephritis #Bipolar disorder ? No longer takes sertraline. - Patient does have allergy to amoxicillin which is anaphylaxis. Will place on IV Levaquin daily. First dose tomorrow since patient did get ceftriaxone 2 g IV x 1 in the ER. ? Check urine culture ? Continue normal saline 125 cc/h for 1 L total. ? Check blood cultures - test negative in ER. - Does have history of atrophic kidney, Will check doppler Patient will need to follow-up with urology at discharge. Full code DVT prophylaxis: Low risk. Does not require DVT prophylaxis. Patient may ambulate ad cristian. Attestations 2 Medical Necessity Statement*: > 2 midnight stay for management of acute pyelonephritis Diagnoses Bipolar 1 disorder, depressed F31.9 Kidney pain N23 Renal atrophy, right N26.1 Pyelonephritis N12
[2024-04-23] MEDS: cefTRIAXone 2,000 mg SDV 2000 MG IVP (17:55)
[2024-04-23] MEDS: methylPREDNISolone sod succ 40 mg/mL INJ IVP (18:20)
[2024-04-23] MEDS: sodium chloride 0.9% 1,000 ML 125 ML IV (18:23)
[2024-04-23] MEDS: morphine 4 mg/mL SDV 1 mL 2 MG IVP (18:23)
--- NOTE | 2024-04-23 18:28 | PC.NURSE ---
pt c/o pain, this nurse administered PRN 2mg Morphine per orders, pt states Morphine makes her mean . pt states she discussed this with physician prior to ordering. pt confirmed okay to administer.
[2024-04-23 18:55] LABS: C Reactive Protein 235.6 mg/L (0.0-4.9)
[2024-04-23 19:02] LABS: Procalcitonin 4.45 ng/mL (0-0.5)
[2024-04-23] MEDS: acetaminophen 325 mg Tablet 650 MG PO (20:21)
[2024-04-24 04:00] VITALS: BP 91/57; PULSE 70; RESP 16; TEMP 36.6; O2SAT 98
[2024-04-24] MEDS: acetaminophen 325 mg Tablet 650 MG PO ×2 (05:06→19:27)
[2024-04-24] MEDS: methylPREDNISolone sod succ 40 mg/mL INJ IVP (05:06)
[2024-04-24 06:31] LABS: Basophils % 0.2 %; Hematocrit 37.8 % (36-47); Lymphocytes # 0.4 10^3/uL (0.8-4.8); Lymphocytes % 7.2 %; Mean Corpuscular HGB Conc 32.3 g/dL (30-55); Mean Corpuscular Hemoglobin 30.1 pg (27-33); Mean Corpuscular Volume 93.3 fl (85-98); Mean Platelet Volume 10.5 fL (7.4-10.4); Monocytes # 0.2 10^3/uL (0.2-0.9); Monocytes % 2.9 %; Neutrophils # 4.59 10^3/uL (1.8-7.7); Neutrophils % 89.3 %; Nucleated Red Blood Cells % 0 %; Platelet Count 172 10^3/cmm (157-399); Red Blood Count 4.05 10^6/uL (3.85-5.65); Red Cell Distribution Width 12.5 % (12.1-15.1); White Blood Count 5.14 10^3/uL (3.29-11.43)
[2024-04-24 07:09] LABS: Blood Urea Nitrogen 16 mg/dL (6-20); Calcium 8.3 mg/dL (8.5-10.5); Carbon Dioxide 23 mmol/L (22-29); Chloride 106 mmol/L (98-107); Creatinine Clr Calc Pharmacy 81.2156; Glomerular Filtration Rate 67.6 mL/min (90-130); Glucose 148 mg/dL (65-115); Magnesium 2.2 mg/dL (1.7-2.3); Osmolality Calculated 292 mOsm/kg (285-295); Sodium 139 mmol/L (136-145)
[2024-04-24 07:18] VITALS: BP 95/61; PULSE 63; RESP 15; TEMP 36.3; O2SAT 98
[2024-04-24 08:53] LABS: C Reactive Protein 243.7 mg/L (0.0-4.9)
[2024-04-24 11:34] VITALS: BP 103/66; PULSE 79; RESP 16; TEMP 36.4; O2SAT 100
--- NOTE | 2024-04-24 12:34 | USCV_ITS ---
Zee Bar Age: 23 Gender: F : 2000 Exam Date: 04/24/2024 18:06 Ordering Phys: Carmen Rocha MD Technologist: EVONNE Exam Location: [facility] [place]_ Indication: atrophic right kidney Aortic Velocity @ SMA (cm/s) 119 RIGHT KIDNEY LEFT KIDNEY Velocity (cm/s) Velocity (cm/s) Sys/[place] Sys/[place] Resistive Index Resistive Index 46.8 / 15.0 0.68 Proximal Renal Artery 74.7 / 17.9 0.76 29.3 / 10.8 0.63 Mid Renal Artery 62.5 / 20.0 0.68 47.0 / 14.4 0.69 Distal Renal Artery 34.8 / 13.5 0.61 20.3 / 8.6 0.58 Upper Pole 41.7 / 18.5 0.56 16.0 / 7.5 0.53 Mid Pole 65.1 / 24.7 0.62 14.6 / 6.8 0.53 Lower Pole 49.0 / 25.8 0.47 0.40 Renal Aortic Ratio 0.60 5.1 Kidney Length (cm) 11.7 CONCLUSIONS Small Right kidney with nornal waveforms No evidence of Renal artery stenosis bilaterally Left kidney pyelonephrits with enlargment and edema See Renal US report for further detail Yonas Castellanos MD (Electronically Signed) Final Date: 25 April 2024 10:49 S
--- NOTE | 2024-04-24 12:36 | P.PN_ITS ---
Subjective 2 Subjective: Seen this morning. She states her pain is significantly improved and she is able to stand up now. She is about to shower. Vitals/I&O/Wt Last Vital Signs Temp 97.6 F 04/24/24 11:34 Pulse 79 04/24/24 11:34 Resp 16 04/24/24 11:34 BP 103/66 04/24/24 11:34 Pulse Ox 100 04/24/24 11:34 O2 Del Method Room Air 04/24/24 11:34 04/23/24 04/24/24 04/24/24 22:59 06:59 14:59 Intake Total 1000 / 1000 1000 / 2000 340 / 340 Balance 1000 / 1000 1000 / 1999 340 / 340 Weight last 48 hrs Weight 57.153 kg Weight 57.153 kg Weight 57.153 kg Physical Exam 2 Narrative: General: Alert oriented x3, patient seen sitting up in bed appearing comfortable HEENT: Normocephalic, atraumatic, EOMI, breathing room air Cardio: Regular rate rhythm, normal S1-S2, Respiratory: Good bilateral air entry, no wheezes no rhonchi appreciated GI: Abdomen soft, nontender, nondistended, bowel sounds + Mildly tender to palpation left side of back. But significantly improved since yesterday. Extremities: Pulses 2+, no edema, no cyanosis Data 04/24/24 04:44 04/24/24 04:44 Micro: Microbiology 04/23/24 15:30 Blood Culture - Preliminary Blood SPECIMEN COLLECTED 04/23/24 15:20 Blood Culture - Preliminary Blood SPECIMEN COLLECTED A&P Assessment and plan (1) Bipolar 1 disorder, depressed: (2) Kidney pain: (3) Renal atrophy, right: (4) Pyelonephritis: Plan #Acute pyelonephritis #Bipolar disorder ? No longer takes sertraline. - Patient does have allergy to amoxicillin which is anaphylaxis. Will place on IV Levaquin daily. First dose tomorrow since patient did get ceftriaxone 2 g IV x 1 in the ER. ? Check urine culture awaiting results. ? Continue normal saline 125 cc/h for 1 L total. ? Check blood cultures - test negative in ER. - Does have history of atrophic kidney, Will check doppler Patient will need to follow-up with urology at discharge. Full code DVT prophylaxis: Low risk. Does not require DVT prophylaxis. Patient may ambulate ad cristian. 04/24/2024 - Start IV Levaquin 750 daily today. ? Await urine culture ? Awaiting renal Dopplers. ? Continue morphine for pain. ? Will order additional liter of fluid 125 cc/h for 1 L total. ? Continue IV antibiotics ? Will trend CRP. ? Attestations 2 Medical Necessity Statement*: Continue to hospitalize patient for pyelonephritis. Continue IV antibiotics at this time. Diagnoses Bipolar 1 disorder, depressed F31.9 Kidney pain N23 Renal atrophy, right N26.1 Pyelonephritis N12
[2024-04-24] MEDS: sodium chloride 0.9% 1,000 ML 125 ML IV (13:30)
[2024-04-24] MEDS: levofloxacin-dextrose 5 % 750 MG/150 ML PREMIX 100 MG IV (13:31)
[2024-04-24 15:22] VITALS: BP 104/71; PULSE 76; RESP 15; TEMP 36.4; O2SAT 100
[2024-04-24 20:00] VITALS: BP 110/75; PULSE 86; RESP 16; TEMP 36.7; O2SAT 100
[2024-04-25] VITALS (7 sets, daily range): BP systolic 98–114; BP diastolic 62–76; PULSE 69–98; RESP 15–18; TEMP 36.5–36.8; O2SAT 98–100
[2024-04-25 05:16] LABS: Anion Gap 15.4 (5-19); Blood Urea Nitrogen 16 mg/dL (6-20); C Reactive Protein 119.6 mg/L (0.0-4.9); Calcium 8.4 mg/dL (8.5-10.5); Carbon Dioxide 20 mmol/L (22-29); Chloride 107 mmol/L (98-107); Creatinine Clr Calc Pharmacy 81.2156; Glomerular Filtration Rate 67.6 mL/min (90-130); Glucose 121 mg/dL (65-115); Osmolality Calculated 288 mOsm/kg (285-295); Potassium 4.4 mmol/L (3.5-5.1); Sodium 138 mmol/L (136-145)
[2024-04-25 05:20] LABS: Procalcitonin 1.62 ng/mL (0-0.5)
[2024-04-25 06:28] LABS: Erythrocyte Sedimentation Rate 62 mm/hr (0-15)
[2024-04-25 06:29] LABS: Basophils % 0.1 %; Lymphocytes # 1.3 10^3/uL (0.8-4.8); Lymphocytes % 12.9 %; Mean Corpuscular HGB Conc 33.2 g/dL (30-55); Mean Corpuscular Hemoglobin 30.2 pg (27-33); Mean Corpuscular Volume 90.9 fl (85-98); Monocytes # 0.4 10^3/uL (0.2-0.9); Monocytes % 4.3 %; Neutrophils % 82.2 %; Nucleated Red Blood Cells % 0 %; Platelet Count 203 10^3/cmm (157-399); Red Blood Count 3.74 10^6/uL (3.85-5.65); Red Cell Distribution Width 12.7 % (12.1-15.1); White Blood Count 9.85 10^3/uL (3.29-11.43)
--- NOTE | 2024-04-25 11:39 | PC.CHAP ---
Pastoral Care Encounter/Spiritual Assessment Type of Contact [x] Declined cupola patcher visit [] Patient/Family/Request visit [] Outpatient visit [] Follow-up visit [] Physician referral [] Code/Alert [] Routine visit [] Staff referral [] Actively dying [] Patient sleeping [] Family support [] [] Out of room [] Palliative care [] [] Receiving care in room [] Pre-surgical visit [] Trauma [] Long length of stay [] ICU visit [] Other: Relational/Emotional Strength [] Patient feels connected with others/family/visitors/staff [] Distress [] Loneliness/isolation [] Abandonment Spirituality of Patient [] Person of [place] [] Attends Protestant of their [place] [] Believes in Prayer [] Reads Bible or Spiritism materials [x] There are Spiritual issues to be addressed Public Services Librarian Interventions [] Prayer [x] Active listening [] Non-anxious presence [] Spiritual/emotional support [] Crisis/trauma care [] Spiritual counseling [] Bereavement support [] Provided bereavement packet [] Provided Bible/devotional materials [] Provided toy/stuffed animal, coloring book to patient or family member [] Provided Communion [] Anointing/[place] [] Salvation [] Completed spiritual assessment [] Other: Impact on Illness or Injury [] Angry [] Fearful [x] Anxious [] Often cries [x] Exhaustion [] Unable to work [] Unable to attend spiritism [] Unable to walk/stand [] Unable to read [] Unable to drive [] Unable to eat/drink [] Unable to sleep [] Unable to be with family [] Patient intubated [] Other: Summary Traumatic presence, Will continue praying for. Time spent with patient 5 min
[2024-04-25] MEDS: levofloxacin-dextrose 5 % 750 MG/150 ML PREMIX 100 MG IV (12:10)
--- NOTE | 2024-04-25 14:27 | P.PN_ITS ---
Subjective 2 Subjective: Seen today. Awaiting urine culture. Renal Doppler reviewed. No renal artery stenosis bilaterally Vitals/I&O/Wt Last Vital Signs Temp 97.9 F 04/25/24 11:28 Pulse 70 04/25/24 11:28 Resp 17 04/25/24 11:28 BP 100/66 04/25/24 11:28 Pulse Ox 98 04/25/24 11:28 O2 Del Method Room Air 04/25/24 11:28 04/24/24 04/25/24 04/25/24 22:59 06:59 14:59 Intake Total 1390 / 1730 590 / 590 Balance 1390 / 1730 590 / 590 Weight last 48 hrs Weight 57.153 kg Weight 57.153 kg Weight 57.153 kg Weight 57.153 kg Physical Exam 2 Narrative: General: Alert oriented x3, patient seen sitting up in bed appearing comfortable HEENT: Normocephalic, atraumatic, EOMI, breathing room air Cardio: Regular rate rhythm, normal S1-S2, Respiratory: Good bilateral air entry, no wheezes no rhonchi appreciated GI: Abdomen soft, nontender, nondistended, bowel sounds + Extremities: Pulses 2+, no edema, no cyanosis Data 04/25/24 06:03 04/25/24 04:23 Micro: Microbiology 04/23/24 15:30 Blood Culture - Preliminary Blood NEGATIVE TO DATE 04/23/24 15:20 Blood Culture - Preliminary Blood NEGATIVE TO DATE A&P Assessment and plan (1) Bipolar 1 disorder, depressed: (2) Kidney pain: (3) Renal atrophy, right: (4) Pyelonephritis: Plan #Acute pyelonephritis #Bipolar disorder ? No longer takes sertraline. - Patient does have allergy to amoxicillin which is anaphylaxis. Will place on IV Levaquin daily. First dose tomorrow since patient did get ceftriaxone 2 g IV x 1 in the ER. ? Check urine culture awaiting results. ? Continue normal saline 125 cc/h for 1 L total. ? Check blood cultures - test negative in ER. - Does have history of atrophic kidney, Will check doppler Patient will need to follow-up with urology at discharge. Full code DVT prophylaxis: Low risk. Does not require DVT prophylaxis. Patient may ambulate ad cristian. 04/25/2024 -Continue IV Levaquin 750 daily today. ? Await urine culture ? Renal Doppler complete. No renal artery stenosis bilaterally. ? Continue morphine for pain. ? Stop IV fluids. ? Continue IV antibiotics ? Will trend CRP. ? Attestations 2 Medical Necessity Statement*: Continue to hospitalize patient for pyelonephritis. Continue IV antibiotics at this time. Diagnoses Bipolar 1 disorder, depressed F31.9 Kidney pain N23 Renal atrophy, right N26.1 Pyelonephritis N12
[2024-04-25] MEDS: acetaminophen 325 mg Tablet 650 MG PO (16:16)
[2024-04-25] MEDS: morphine 4 mg/mL SDV 1 mL 2 MG IVP ×2 (17:20→21:11)
[2024-04-26] VITALS (7 sets, daily range): BP systolic 86–104; BP diastolic 60–72; PULSE 72–92; RESP 13–16; TEMP 36.4–36.6; O2SAT 95–98
[2024-04-26] MEDS: HYDROmorphone 1 mg/mL INJ 1 mL 0.5 MG IVP (01:11)
[2024-04-26] MEDS: morphine 4 mg/mL SDV 1 mL 2 MG IVP (04:04)
[2024-04-26] MEDS: cyclobenzaprine 10 mg Tablet PO (04:26)
[2024-04-26 05:52] LABS: Anion Gap 12.2 (5-19); Blood Urea Nitrogen 13 mg/dL (6-20); C Reactive Protein 56.4 mg/L (0.0-4.9); Calcium 8.2 mg/dL (8.5-10.5); Carbon Dioxide 24 mmol/L (22-29); Chloride 106 mmol/L (98-107); Creatinine Clr Calc Pharmacy 81.2156; Glomerular Filtration Rate 67.6 mL/min (90-130); Glucose 77 mg/dL (65-115); Osmolality Calculated 285 mOsm/kg (285-295); Potassium 4.2 mmol/L (3.5-5.1); Sodium 138 mmol/L (136-145)
[2024-04-26 05:58] LABS: Procalcitonin 0.78 ng/mL (0-0.5)
[2024-04-26] MEDS: levofloxacin-dextrose 5 % 750 MG/150 ML PREMIX 100 MG IV (12:20)
--- NOTE | 2024-04-26 13:23 | PM.DCS ---
Discharge Providers Date of Admission: 04/23/24 18:31 Date of Discharge: April 26, 2024 Attending Provider at Admission: Carmen Rocha MD Attending Provider at Discharge: Carmen Rocha MD Primary Care Provider: DELICIA Blandon Diagnoses at Discharge Discharge Diagnosis (1) Bipolar 1 disorder, depressed: Status: Acute (2) Kidney pain: Status: Acute (3) Renal atrophy, right: Status: Acute (4) Pyelonephritis: Status: Inactive Reason for Visit Reason for Visit: abdominal/neck pain - sent from [facility] Course Hospital Course Patient presented with flank pain and was diagnosed with acute pyelonephritis. She was kept on IV antibiotics. CRP and procalcitonin was elevated. Once trended down she was switched to oral Levaquin for an additional 10 days to complete 14 days total. She was educated to come back to the hospital in case of any worsening symptoms. Patient already has an appointment set up with nephrology in [place]. Referred her to urology, nephrology and her primary care doctor. Blood cultures were negative. Initial urine culture obtained at an outside clinic did not reflex to culture. Discussed with lab. Obtain an additional urine sample which at that point was sterile secondary to antibiotic use. Past cultures were sensitive to Levaquin and patient did respond clinically to it. CRP Pro-David did trend down and symptomatically she improved. Therefore she was sent home on that. Patient does have a history of recurrent pyelonephritis in the past therefore appropriate follow-ups were ordered. She was discharged on a weekend and therefore discussed with charge nurse who is going to talk to case management on Sunday morning to have her appointments arranged. Nursing staff to call patient with appointments. Did give her follow-up labs to recheck in 3 days. All questions answered. Patient will be discharged home after today's IV Levaquin dosage. Physical Exam Narrative: General: Alert oriented x3, patient seen sitting up in bed appearing comfortable HEENT: Normocephalic, atraumatic, EOMI, breathing room air Cardio: Regular rate rhythm, normal S1-S2, Respiratory: Good bilateral air entry, no wheezes no rhonchi appreciated GI: Abdomen soft, nontender, nondistended, bowel sounds + Extremities: Pulses 2+, no edema, no cyanosis Discharge Data Studies Completed and Pending Completed Studies During Hospitalization Category Date Time Status CT kidney stone 84160 Stat Cat Scan 04/23/24 15:20 Completed CV renal doppler 18258 Routine Ultrasound 04/24/24 12:34 Completed Pending at discharge Category Date Time Status Blood Culture Stat Lab 04/23/24 15:30 Results Urine Culture Stat Lab 04/25/24 11:45 Results Radiology Impressions Abdomen/Pelvis CT 04/23/24 15:20 IMPRESSION: 1. Mildly enlarged, mildly edematous left kidney with associated perinephric stranding and edema. Acute pyelonephritis could produce this appearance. Correlate with urinalysis. 2. 4.7 x 4.2 cm right adnexal cystic lesion, likely a follicular cyst. If clinically indicated, pelvic ultrasound may be obtained for further evaluation. 3. Additional findings, as above. Laboratory Results WBC 9.85 10^3/uL (3.29-11.43) 04/25/24 06:03 Corrected WBC Cancelled 04/25/24 04:23 RBC 3.74 10^6/uL (3.85-5.65) L 04/25/24 06:03 Hgb 11.30 g/dL (11.27-16.99) 04/25/24 06:03 Hct 34.0 % (36-47) L 04/25/24 06:03 MCV 90.9 fl (85-98) 04/25/24 06:03 MCH 30.2 pg (27-33) 04/25/24 06:03 MCHC 33.2 g/dL (30-55) 04/25/24 06:03 RDW 12.7 % (12.1-15.1) 04/25/24 06:03 Plt Count 203 10^3/cmm (157-399) 04/25/24 06:03 MPV 10.0 fL (7.4-10.4) 04/25/24 06:03 Gran % Cancelled 04/25/24 04:23 Neut % (Auto) 82.2 % 04/25/24 06:03 Lymph % (Auto) 12.9 % 04/25/24 06:03 Kendall % (Auto) 4.3 % 04/25/24 06:03 Eos % (Auto) 0.0 % 04/25/24 06:03 Baso % (Auto) 0.1 % 04/25/24 06:03 Neut # (Auto) 8.10 10^3/uL (1.8-7.7) H 04/25/24 06:03 Lymph # (Auto) 1.3 10^3/uL (0.8-4.8) 04/25/24 06:03 Kendall # (Auto) 0.4 10^3/uL (0.2-0.9) 04/25/24 06:03 Eos # (Auto) 0.0 10^3/uL (0.0-0.8) 04/25/24 06:03 Baso # (Auto) 0.0 10^3/uL (0.0-0.1) 04/25/24 06:03 Absolute Gran (auto) Cancelled 04/25/24 04:23 Nucleated RBC % (auto) 0 % 04/25/24 06:03 Nucleated RBCs # 0.0 /100WBC 04/25/24 06:03 ESR 62 mm/hr (0-15) H 04/25/24 06:03 Sodium 138 mmol/L (136-145) 04/26/24 04:16 Potassium 4.2 mmol/L (3.5-5.1) 04/26/24 04:16 Chloride 106 mmol/L (98-107) 04/26/24 04:16 Carbon Dioxide 24 mmol/L (22-29) 04/26/24 04:16 Anion Gap 12.2 (5-19) 04/26/24 04:16 BUN 13 mg/dL (6-20) 04/26/24 04:16 Creatinine 1.0 mg/dL (0.5-0.9) H 04/26/24 04:16 GFR Calculation 67.6 mL/min (90-130) L 04/26/24 04:16 Glucose 77 mg/dL (65-115) 04/26/24 04:16 Calculated Osmolality 285 mOsm/kg (285-295) 04/26/24 04:16 Lactic Acid 2.0 mmol/L (0.5-2.2) 04/23/24 15:20 Calcium 8.2 mg/dL (8.5-10.5) L 04/26/24 04:16 Magnesium 2.2 mg/dL (1.7-2.3) 04/24/24 04:44 Total Bilirubin 0.6 mg/dL (0.15-1.2) 04/23/24 15:20 AST 23 U/L (0-32) 04/23/24 15:20 ALT 20 U/L (0-33) 04/23/24 15:20 Alkaline Phosphatase 90 U/L (35-105) 04/23/24 15:20 C-Reactive Protein 56.4 mg/L (0.0-4.9) H 04/26/24 04:16 Total Protein 6.7 g/dL (6.6-8.7) 04/23/24 15:20 Albumin 3.5 g/dL (3.5-5.2) 04/23/24 15:20 Globulin 3.2 g/dL (1.3-4.6) 04/23/24 15:20 Procalcitonin 0.78 ng/mL (0-0.5) H 04/26/24 04:16 HCG, Qual Negative (Negative) 04/23/24 15:20 Urine Color Yellow (Yellow) 04/23/24 15:45 Urine Appearance Clear (CLEAR) 04/23/24 15:45 Urine pH 6.0 (5-7) 04/23/24 15:45 Ur Specific [place] 1.006 (1.005-1.030) 04/23/24 15:45 Urine Protein Trace (Negative) A 04/23/24 15:45 Urine Glucose (UA) Negative (Normal) 04/23/24 15:45 Urine Ketones Negative (Negative) 04/23/24 15:45 Urine Blood 1+ (Negative) A 04/23/24 15:45 Urine Nitrate Negative (Negative) 04/23/24 15:45 Urine Bilirubin Negative (Negative) 04/23/24 15:45 Urine Urobilinogen 1.0 mg/dL (Negative) 04/23/24 15:45 Ur Leukocyte Esterase 2+ (Negative) A 04/23/24 15:45 Urine RBC 3-5 /hpf (0-2) 04/23/24 15:45 Urine WBC 21-50 /hpf (0-5) H 04/23/24 15:45 Ur Squamous Epith Cells 6-10 /hpf (0-5) 04/23/24 15:45 Amorphous Sediment Not Reportable 04/23/24 15:45 Urine Bacteria 4+ /hpf (NONE) H 04/23/24 15:45 Hyaline Casts 0.40 /lpf 04/23/24 15:45 Vitals Last Vital Signs Temp 97.6 F 04/26/24 08:00 Pulse 72 04/26/24 08:00 Resp 14 04/26/24 08:00 BP 86/60 04/26/24 08:00 Pulse Ox 97 04/26/24 08:00 O2 Del Method Room Air 04/26/24 08:00 Discharge Plan Discharge Patient Disposition: Home Condition: Stable Prescriptions: New levofloxacin 750 mg tablet 750 mg PO DAILY Qty: 10 0RF Discharge Orders: Discharge Order (Routine); Ordered 04/26/24 Ordered By: Carmen Rocha Other Ambulatory Orders: Basic Metabolic Panel (Routine) Timeframe: 3 Days Facility: [facility] - Location: Lab - Main Lab Ordered By: Carmen Rocha Complete Blood Count w/Auto (Routine) Timeframe: 3 Days Location: Determined by Patient Ordered By: Carmen Rocha Referrals: Sid Huber MD [Referring] - 7-10 days (We have notified your physician's clinic of the need for a follow-up appointment to be scheduled. If you have not heard from them within the next 2 business days, please call them directly. ) Antoinette Hunt FNP [Primary Care Provider] - 4-7 days (We have notified your physician's clinic of the need for a follow-up appointment to be scheduled. If you have not heard from them within the next 2 business days, please call them directly. ) Discharge Diet: Regular Discharge Activity: Resume usual activity Patient Instructions: Levofloxacin (By mouth) (Levaquin, Levaquin Leva-katlyn), Urinary Tract Infection in Women (GEN), Opioid Safety Activity Restrictions/Additional Instructions: Please follow-up with Dr. Bhatti nephrology as previously scheduled. We will try to get an earlier appointment for you and someone will call you from the hospital regarding an appointment on Sunday. Please follow-up with your primary care doctor within the next week and we will also place a urology referral for you. Please complete your antibiotics for an additional 10 days to equal 14 days total. If you have a fever, abdominal pain flank pain blood in urine, chills, dysuria, urinary urgency frequency please return to the ER immediately. You may require reimaging and continued IV antibiotics. So far your blood cultures have been negative. Discharge Attestations Time Spent in Discharge Care*: greater than 30 min Quality Metrics Clinical Quality Measures [ No reported AMI, CVA or VTE this stay] Coding Level of Care Code Acute Code for Chg Fwd Diagnoses Bipolar 1 disorder, depressed F31.9 Kidney pain N23 Renal atrophy, right N26.1 Pyelonephritis N12
--- NOTE | 2024-04-26 15:39 | PC.NURSE ---
Discussed discharge with patient and family member. Discussed the importance of returning to the hospital if a fever, abdominal pain, flank pain, blood in urine, chills with or without a fever, dysuria, and/or urinary urgency frequency to return to the emergency room immediately per Dr. Rocha. Went over anitibiotic and to continue for 10 days daily. Discussed follow up appointments as well. Patient verbalized to call follow up physicians if a call has not been received by Sunday. All other discharge orders were verbalized understanding by patient and family member.
== END 2024-04-26 15:10 | disposition home or self-care (01) | DRG 690 ==
LOC: ER 15:25 → MEDSURG 18:31
PROVIDERS: Admitting Provider Internal Medicine; Emergency Provider Family Medicine; PCP Nurse Practitioner Family; Visit Provider Internal Medicine
DX: N10 Acute pyelonephritis (principal); F31.9 Bipolar disorder, unspecified; N26.1 Atrophy of kidney (terminal); Z79.899 Other long term (current) drug therapy; Z88.1 Allergy status to other antibiotic agents
CPT/HCPCS: 36415; 74176; 80048; 80053; 81001; 83605; 83735; 84145; 84703; 85025; 85651; 86140; 87040; 87086; 93975; 96374; 96375; 99285; J0696; J1171; J1956; J2270; J2919; J7030

== ENCOUNTER 2024-12-12 21:18 | Emergency (ER) | payer BC, MEDICAID, SELFPAY ==
--- NOTE | 2024-12-12 21:30 | ECG_ITS ---
[facility] Test Date: 2024-12-12 Pat Name: Zee Bar Department: Room: Gender: Female Parts Puller: : 2000 Requested By: Skye Arshad Order Number: [id number] Rajesh MD: Abdi Patel M.D. Measurements Intervals [place] Rate: 84 P: 75 VA: 130 QRS: 104 QRSD: 78 T: 68 QT: 379 QTc: 450 Interpretive Statements SINUS RHYTHM RIGHT AXIS DEVIATION [QRS AXIS > 100] Compared to ECG 12/21/2020 21:13:08 No significant changes Electronically Signed On 12-13-2024 14:36:35 CDT by Abdi Patel M.D. [email or web address]
[2024-12-12 21:36] VITALS: BP 105/69; PULSE 84; RESP 16; TEMP 36.5; O2SAT 99; BMI 19.8
[2024-12-12] MEDS: ondansetron hcl ODT 4 mg Tab PO (22:32)
[2024-12-12 22:44] LABS: Bilirubin Urine Negative (Negative); Blood Urine Negative (Negative); Glucose Urine UA Negative (Normal); Ketones Urine Trace (Negative); Leukocyte Esterase Urine 1+ (Negative); Nitrate Urine Positive (Negative); Protein Urine Negative (Negative); Specific Gravity, Urine 1.021 (1.005-1.030); Urine Appearance Cloudy (CLEAR); Urine Color Yellow (Yellow)
[2024-12-12 22:49] LABS: Add Urine Microscopic? YES; RBC Urine 0-2 /hpf (0-2)
--- NOTE | 2024-12-12 22:53 | W.ED.CHESTPA ---
HPI - Chest Pain General: Chief Complaint: Chest Pain Stated Complaint: CP flank pain vision blurry arms going numb Time Seen by Provider: 12/12/24 21:52 History of Present Illness: Patient is a 24-year-old female reports to ED with nausea, right-sided flank pain. She did have similar symptoms last year and ultrasound of renal revealed normal renal arteries without stenosis, smaller right kidney, and pyelonephritis on the left. Same sexual partner. No dysuria, however with her flank pain nausea is quite present. Associated symptoms: Reports abdominal pain and nausea; Deny dyspnea, fever(s), palpitations or vomiting Related Data Home Medications ?Medication ?Instructions ?Recorded ?Confirmed bupropion HCl 300 mg 24 hr tablet, 300 mg PO QAM 12/12/24 12/12/24 extended release (Wellbutrin XL) hydroxyzine pamoate 25 mg capsule 25 mg PO 3XD PRN depression 12/12/24 12/12/24 naltrexone 50 mg tablet 50 mg PO QPM 12/12/24 12/12/24 olanzapine 10 mg tablet 10 mg PO QPM 12/12/24 12/12/24 propranolol 20 mg tablet 20 mg PO 3XD PRN Anxiety 12/12/24 12/12/24 topiramate 50 mg tablet 50 mg PO QPM 12/12/24 12/12/24 Previous Rx's ?Medication ?Instructions ?Recorded cefdinir 300 mg capsule 300 mg PO BID 10 days #20 caps 12/12/24 ondansetron 4 mg disintegrating 4 mg PO Q8H 4 days #12 tabs 12/12/24 tablet Allergies Allergy/AdvReac Type Severity Reaction Status Date / Time amoxicillin Allergy ALGY-Anaphy Verified 12/12/24 21:36 laxis morphine Allergy Unknown Verified 12/12/24 21:36 aripiprazole (From Abilify) AdvReac Severe ADR-Agitate Verified 12/12/24 21:36 d Review of Systems Const: Denies: fever(s) or chills Card: Denies: chest pain or palpitations Resp: Denies: dyspnea or productive cough GI: Reports: abdominal pain and nausea; Denies: vomiting : Reports: flank pain; Denies: difficulty voiding, dysuria or urinary hesitancy Musc: Denies: neck pain or back pain Neuro: Denies: headache(s) or numbness in extremities Psych: Denies: anxiety or depression Alexis/Lymph: Denies: easy bruising or easy bleeding PFSH ED PFSH: Medical History (Updated 12/12/24 @ 23:39 by EUSEBIA Malagon) Bipolar 1 disorder, depressed Family History Grandfather Cancer Social History Smoking and tobacco/nicotine status: never used tobacco/nicotine Second hand smoke exposure: No Alcohol intake: never Substance/Drug Use: current Substance/Drug use frequency: daily Female Reproductive History: Date of last menstrual period: 09/13/24 Physical Exam Const: COMMON NORMALS: no acute distress, average body habitus and patient oriented x3 HENMT: COMMON NORMALS: normocephalic and atraumatic HEAD & SCALP: normocephalic and atraumatic Resp: COMMON NORMALS: normal respiratory effort and clear to auscultation bilaterally AUSCULTATION: clear to auscultation bilaterally Cardio: COMMON NORMALS: regular rate and regular rhythm RATE: regular rate RHYTHM: regular rhythm GI: COMMON NORMALS: Normal to inspection, nondistended, normoactive bowel sounds present, Soft to palpation and non-tender PALPATION: Yes Soft to palpation : BLADDER/KIDNEY EXAM: Yes CVA tenderness on the right Back/Pelvis: GENERAL BACK: Yes CVA tenderness Extremity: COMMON NORMALS: normal to inspection, full ROM and capillary refill normal Neuro: COMMON NORMALS: patient oriented x3, CN's II-XII intact bilaterally and moves all extremities Psych: COMMON NORMALS: Normal thought process present and cooperative THOUGHT PROCESS: Normal thought process present Course Vital Signs: Vital signs: Vital Signs Temperature 97.7 F 12/12/24 21:36 Pulse Rate 84 12/12/24 21:36 Respiratory Rate 16 12/12/24 21:36 Blood Pressure 105/69 12/12/24 21:36 Pulse Oximetry 99 12/12/24 21:36 Oxygen Delivery Me thod Room Air 12/12/24 21:36 MDM - Chest Pain Medical Decision Making Patient is a 24-year-old female with previous history of pyelonephritis that reports to ED with right-sided flank pain. Previous chart was reviewed and noted normal renal arteries without stenosis, small right kidney, and pyelonephritis on the left side in April 2024. Urine analysis shows pyuria with nitrite positive. Culture and sensitivities pending. Patient was given Rocephin x 1 here, and cefdinir with Zofran to the pharmacy. Nausea resolved after Zofran. Lab Data Laboratory Results Urine Color Yellow (Yellow) 12/12/24 22:34 Urine Appearance Cloudy (CLEAR) A 12/12/24 22:34 Urine pH 6.0 (5-7) 12/12/24 22:34 Ur Specific [place] 1.021 (1.005-1.030) 12/12/24 22:34 Urine Protein Negative (Negative) 12/12/24: Urine Glucose (UA) Negative (Normal) 12/12/24: Urine Ketones Trace (Negative) 12/12/24: Urine Blood Negative (Negative) 12/12/24:34 Urine Nitrate Positive (Negative) A 12/12/24: Urine Bilirubin Negative (Negative) 12/12/24:34 Urine Urobilinogen 1.0 mg/dL (Negative) 12/12/24 22:34 Ur Leukocyte Esterase 1+ (Negative) A 12/12/24 22:34 Urine RBC 0-2 /hpf (0-2) 12/12/24 22:34 Urine WBC 11-20 /hpf (0-5) H 12/12/24 22:34 Ur Squamous Epith Cells 6-10 /hpf (0-5) 12/12/24 22:34 Amorphous Sediment Not Reportable 12/12/24:34 Urine Bacteria Many /hpf (NONE) 12/12/24:34 Hyaline Casts 0.40 /lpf 12/12/24 22:34 No radiology studies performed this visit Discharge Plan Discharge Patient Disposition: Home Clinical Impression: Pyuria due to bacterial urinary tract infection Condition: Stable Prescriptions: New cefdinir 300 mg capsule 300 mg PO BID 10 Days Qty: 20 0RF ondansetron 4 mg tablet,disintegrating 4 mg PO Q8H 4 Days Qty: 12 0RF No Action olanzapine 10 mg Tablet 10 mg PO QPM propranolol 20 mg Tablet 20 mg PO 3XD PRN (Reason: Anxiety) naltrexone 50 mg Tablet 50 mg PO QPM hydroxyzine pamoate 25 mg Capsule 25 mg PO 3XD PRN (Reason: depression) topiramate 50 mg Tablet 50 mg PO QPM bupropion HCl [Wellbutrin XL] 300 mg Tablet Extended Release 24 Hr 300 mg PO QAM Discharge Orders: Discharge ED (Routine); Ordered 12/12/24 Ordered By: Skye Arshad Referrals: Antoinette Hunt FNP [Primary Care Provider, Unknown] Discharge Diet: Full LIquid Discharge Activity: Resume usual activity Patient Instructions: Dysuria (ED) Activity Restrictions/Additional Instructions: You may utilize Tylenol and ibuprofen for pain The pharmacy has received your antibiotic and your nausea medication. You received antibiotic and nausea medication while you are here, and your antibiotic is due in the morning. Take with a little bit of food. Do not forget your probiotic or active culture yogurt to avoid infectious diarrhea. Return to ED if we can be of further help, or if you have ongoing nausea and vomiting. As we discussed, your culture of this urine is pending. If there are any changes, someone from the hospital will call you. Print Language: Swiss Coding Level of Care Code ED Intelligence Clerk for Julio Velasco
[2024-12-12 23:25] LABS: Bacteria Urine Many /hpf
[2024-12-12 23:26] LABS: Add Urine Culture? Yes
[2024-12-12] MEDS: cefTRIAXone 1,000 MG in water for injection-sterile 2.1 ML 999 MG IM (23:53)
[2024-12-13 00:18] VITALS: BP 111/73; PULSE 91; RESP 16; O2SAT 98
== END 2024-12-13 00:20 | disposition home or self-care (01) ==
PROVIDERS: Emergency Provider Physician Assistant; PCP Nurse Practitioner Family
DX: N39.0 Urinary tract infection, site not specified (principal)
CPT/HCPCS: 81001; 87077; 87086; 87186; 93005; 96372; 99284; J0696; Q0162